=== PATIENT | male | born 1955 | race Caucasian/White ===

== ENCOUNTER → 2018-09-07 | Outpatient (CLI) | payer OTHER, MEDICARE ==
--- NOTE | 2018-09-07 08:28 | MR ---
EXAMINATION TYPE: MR shoulder RT wo con DATE OF EXAM: 09/07/2018 COMPARISON: None HISTORY: Rotator cuff tear, right shoulder, pain, numbness, loss of motion TECHNIQUE: Multiplanar, multisequence imaging of the right shoulder is performed without contrast. FINDINGS: Rotator Cuff: There is increased signal associated with the rotator cuff tendon, at the anterior aspe ct focal fluid signal is present suggestive of at least a partial tear and possibly a partial full-th ickness tear with associated tendinosis. Posterior aspect of the rotator cuff also is attenuated near the insertion. Acromioclavicular Joint: Hypertrophic change of the acromioclavicular joint causes some mass effect o n the musculotendinous junction of supraspinatus. Small distal acromial spur is suggested. Glenohumeral Joint: Intact Labrum: Labrum shows some increased signal within its substance which may be due to some degenerative changes, degenerative tear especially at the anterior aspect Biceps Tendon: Normal position, there is some fluid signal along the long head of biceps tendon Bone marrow signal: Pseudocysts are present within the humeral head. Other: Fluid signal present in the subacromial subdeltoid bursa IMPRESSION: Tendinosis and partial tear of the rotator cuff as described. Correlate for impingement.
== END | disposition home or self-care (01) ==
LOC: RADMRIMAIN 06:45
PROVIDERS: ATTEND Internal Medicine Rheumatology
DX: M75.101 Unspecified rotator cuff tear or rupture of right shoulder, not specified as traumatic (principal)

== ENCOUNTER → 2019-06-13 | Day surgery (SDC) | payer OTHER, MEDICARE ==
[2019-06-08 12:40] VITALS: BMI 29.9
--- NOTE | 2019-06-12 15:40 | HP ---
HISTORY AND PHYSICAL REASON FOR ADMISSION: Surgery is scheduled for 06/13/2019 HISTORY OF PRESENT ILLNESS: Juan Ruano is a 63-year-old patient seen with progressive right shoulder pain. We discussed options. He elected to proceed with arthroscopy. Consent was obtained. PAST MEDICAL HISTORY: Hypertension. PAST SURGICAL HISTORY: Knee arthroscopy, shoulder arthroscopy. MEDICATIONS: Bystolic, cyclobenzaprine, gabapentin, Prilosec. ALLERGIES: None. SOCIAL HISTORY: He denies current tobacco use. PHYSICAL EVALUATION: Examination of the right shoulder: Flexion is 120, abduction 70, external rotation 20 with pain and weakness. Tenderness along the anterior lateral acromion, rotator cuff insertion site. Impingement sign is positive at 70 degrees. Drop-arm sign is positive. Distal neurovascular exam is intact. RADIOGRAPHS: Of his right shoulder revealed a type 2 anterior acromion, evidence for acromioclavicular joint osteoarthritis. Right shoulder MRI revealed rotator cuff tear and impingement. IMPRESSION: 1. Right shoulder impingement, rotator cuff tear. 2. Right shoulder acromioclavicular osteoarthritis. 3. Hypertension. PLAN: Right shoulder arthroscopy with subacromial decompression, arthroscopic rotator cuff repair, Sumeet procedure and debridement. Surgery scheduled for 06/13/2019. MMODL / IJN: [id number] /
[~2019-06-13] MED LIST: DEXAMETHASONE SOD PHOSPHATE 10 MG/ML 1 ML VIAL IV ONE; GLYCOPYRROLATE 0.2 MG/ML 2 ML VIAL ONE; HYDROmorphone 0.5 MG/0.5 ML SYRINGE IVP PRN; LACTATED RINGERS 1,000 ML IV ONE; LACTATED RINGERS 1,000 ML IV SCH; LIDOCAINE 1% INJ 10MG/ML (20 ML MDV) ONE; MIDAZOLAM 2 MG/2 ML VIAL IV ONE; MIDAZOLAM 2 MG/2 ML VIAL IV PRN; MIDAZOLAM 2 MG/2 ML VIAL ONE; NEOSTIGMINE 1 MG/ML 10 ML VIAL ONE; ONDANSETRON 4 MG/2 ML VIAL IVP ONE; PHENYLEPHRINE-0.9% NACL SYG 1 MG/10 ML SYRINGE ONE; PROPOFOL 10 MG/ML 20 ML VIAL IV ONE; ROCURONIUM BROMIDE 10 MG/ML 10 ML VIAL IV ONE; ROPIVACAINE 0.2%-NS ON-Q PUMP 1,090 MG, EMPTY PAIN BALL 1 EACH MISCELLANE PRN; SCOPOLAMINE 1.5MG/72HR PATCH TRANSDERM ONE; fentaNYL (PF) 50 MCG/ML 2 ML AMP ONE
--- NOTE | 2019-06-13 15:00 | P.ANPRN ---
Procedure Note - Anesthesia - Nerve Block Performed Right Interscalene Infusion Time Out Performed: Yes Date of Procedure: 06/13/19 Procedure Start Time: 13:47 Procedure Stop Time: 14:10 Location of Patient: PreOp Indication: Acute Post-Operative Pain, Requested by Surgeon Sedation Type: Sedate with meaningful contact maintained Preparation: Sterile Prep, Sterile Dressing Position: Sitting Catheter: Indwelling Needle Types: Incentivyzey Needle Gauge: 18 Ultrasound used to visualize needle placement: Yes Ultrasound used to observe medication spread: Yes Injectate: 0.5% Ropivacaine (see comment for volume) (20 ml) Blood Aspirated: No Pain Paresthesia on Injection Noted: No Resistance on Injection: Normal Image Stored and Saved: Yes Events: Uneventful and Well Tolerated
--- NOTE | 2019-06-13 16:36 | P.OP ---
Date of Procedure: 06/13/19 Preoperative Diagnosis: Right shoulder impingement Postoperative Diagnosis: 1. Right shoulder rotator cuff tear 2. Right shoulder impingement 3. Right shoulder acromioclavicular joint osteoarthritis 4. Right shoulder partial long head biceps tendon Procedure(s) Performed: 1. Right shoulder arthroscopic rotator cuff repair 2. Right shoulder arthroscopic subacromial decompression 3. Right shoulder arthroscopic Sumeet procedure 4. Right shoulder arthroscopic biceps tenotomy Implants: 1Arthrex 4.75 swivel lock anchor Anesthesia: GETA, regional (Interscalene block) Surgeon: Jona Llanos Manager Body #1: Julien Anderson Estimated Blood Loss (ml): 8 Pathology: none sent Condition: stable Disposition: PACU Indications for Procedure: 63-year-old patient seen with progressive right shoulder pain. After treatment options to proceed with arthroscopy. Operative Findings: See description of procedure Description of Procedure: Patient underwent an interscalene block/catheter by department of anesthesia for postoperative pain management. The patient was then taken to the operative suite. The patient underwent a general anesthetic by the [facility] of [facility]. The patient was placed into a lateral position and secured. There was appropriate padding of the bony prominence. Right shoulder was then prepped and draped in normal sterile orthopedic fashion. We placed the extremity in 10 pounds of longitudinal traction. A posterior incision was now made for a posterior working portal site. The trocar and cannula were inserted into the glenohumeral joint. Arthroscopy was initiated. Spinal needle was now inserted anteriorly, to ascertain the anterior working portal site. An incision was now made in that area, a trocar was inserted followed by a probe. There was some hyperemia and partial tearing long head biceps tendon. There was some mild fraying of the superior labrum. There were grade 1 chondromalacia changes of glenohumeral joint. The remainder labrum was stable. I performed an arthroscopic biceps tenotomy. I debrided the superficial labral tear. I again probed the residual labrum was stable. I now removed instruments from g lenohumeral joint. Utilizing the posterior working portal site, the trocar and cannula were inserted into the subacromial space. Arthroscopy initiated. I made an incision 2 fingerbreadths lateral to the acromion. I introduced my trocar followed by my ArthroCare ablator. I now began ablating thick subacromial bursal tissue, which exposed the undersurface of the anterior acromion. There was diminished subacromial space. There was a very prominent anterior acromion. A motorized bur was introduced and a subacromial decompression was performed. I also excised some osteophytes off the inferior aspect of the distal clavicle. The AC joint was visualized and noted to be fairly arthritic. The motorized bur was introduced in the anterior portal site and a Sumeet procedure was performed without difficulty, decompressing the AC joint nicely. I turned my attention to the rotator cuff. There was a 1.5 cm rotator cuff tear along the posterior aspect of the disc space. There was an intrasubstance component to this. I debrided the margins gained down to stable tendon tissue. I abraded the footprint with a motorized bur. I did a [id number] repair of the intrasubstance tear with 2 simple interrupted sutures with the assistance of [place] BLISS. I now with assistance of [place] BLISS passed 2 everted mattress sutures through good bites of rotator cuff tendon. I now punched hole in the area of the footprint for insertion of an anchor. We now passed all 4 limbs of suture through an Arthrex 4.75 swivel lock anchor. I now introduced the eyelet of the anchor into the pre-punch hole. I held the eyelet in position while [place] BLISS tension the sutures and then deployed the anchor. There was good fixation of the anchor. We had good compression of the tendon along the entire footprint. Residual suture limbs were clipped. I injected 1 mL Renyte intra-articular. Instruments now removed from the portal sites. All portal sites were approximated with nylon suture. Sterile dressings were applied followed by a shoulder sling. Julien BLISS assisted in this complex case. The patient was awakened, transferred to a bed, and taken to recovery in stable condition.
[2019-06-13 16:47] VITALS: TEMP 97.7
[2019-06-13 18:34] VITALS: RESP 20
[2019-06-13 20:23] VITALS: BP 132/74; PULSE 78
== END | disposition home or self-care (01) ==
LOC: OR 12:34
PROVIDERS: ATTEND Orthopaedic Surgery
DX: M75.101 Unspecified rotator cuff tear or rupture of right shoulder, not specified as traumatic (principal); M19.011 Primary osteoarthritis, right shoulder; M75.41 Impingement syndrome of right shoulder; S46.111A Strain of muscle, fascia and tendon of long head of biceps, right arm, initial encounter; M94.211 Chondromalacia, right shoulder; I10 Essential (primary) hypertension; M06.9 Rheumatoid arthritis, unspecified; K21.9 Gastro-esophageal reflux disease without esophagitis; Z98.890 Other specified postprocedural states; Z79.899 Other long term (current) drug therapy; Z79.82 Long term (current) use of aspirin; X58.XXXA Exposure to other specified factors, initial encounter
CPT/HCPCS: 29827; 29826; 29824; 64416; 76942; C1713; Q4212; J2250; J1100; J2710; J0690; J2405; J2001; J3010; J2370; J2704; J2795; 64415

== ENCOUNTER 2022-03-07 21:12 | Observation (INO) | payer MEDICARE, OTHER ==
[2022-03-07 23:35] LABS: Basophils % (A) 0 %; Eosinophils # (A) 0.1 k/uL (0-0.7); Eosinophils % (A) 1 %; HCT 45.1 % (39.0-53.0); HGB 15.3 gm/dL (13.0-17.5); Lymphocytes % (A) 20 %; MCH 32.7 pg (25.0-35.0); MCHC 33.8 g/dL (31.0-37.0); MCV 96.6 fL (80.0-100.0); Mean Platelet Volume 8.1; Monocytes # (A) 0.9 k/uL (0-1.0); Monocytes % (A) 9 %; Neutrophils # (A) 6.5 k/uL (1.3-7.7); Neutrophils % (A) 66 %; Platelet Count 281 k/uL (150-450); RBC 4.67 m/uL (4.30-5.90); WBC 9.8 k/uL (3.8-10.6)
[2022-03-07 23:48] LABS: Potassium 4.5 mmol/L (3.5-5.1)
[2022-03-07] MEDS ORDERED: LABETALOL 5 MG/ML VIAL MDV IVP STA (23:50)
[2022-03-07] MEDS ORDERED: SODIUM CHLORIDE 0.9% 500 ML 500 ML IV STA (23:51)
--- NOTE | 2022-03-07 23:57 | ED ---
General Adult HPI - General Chief complaint: Recheck/Abnormal Lab/Rx Stated complaint: poss heartattack Time Seen by Provider: 03/07/22 23:45 Source: patient, family, RN notes reviewed, old records reviewed Mode of arrival: wheelchair Limitations: no limitations - History of Present Illness Initial comments: This is a well-appearing 66-year-old male patient that that presents with elevated blood pressure and complaints of frontal headache since yesterday with on /off dizziness. Denies chest pain or difficulty in breathing. States he does have a history of hypertension. Location: head (frontal) Severity scale (1-10): 4 Quality: aching Consistency: intermittent Associated Symptoms: other (dizziness on off) Treatments Prior to Arrival: none - Related Data Home Medications Medication Instructions Recorded Confirmed Aspirin 81 mg PO DAILY 06/08/19 06/08/19 Cyclobenzaprine [Flexeril] 10 mg PO HS 06/08/19 06/13/19 Folic Acid 1 mg PO DAILY 06/08/19 06/13/19 Gabapentin [Neurontin] 600 mg PO BID 06/08/19 06/13/19 Nebivolol HCl [Bystolic] 10 mg PO DAILY 06/08/19 06/13/19 Omeprazole [PriLOSEC] 20 mg PO AC-BRKFST 06/08/19 06/13/19 amLODIPine [Norvasc] 5 mg PO DAILY 06/08/19 06/13/19 inFLIXimab [Remicade] 0 mg IVPB Q45D 06/08/19 06/08/19 Previous Rx's Medication Instructions Recorded HYDROcodone/APAP 7.5-325MG [[place] 1 each PO Q6HR PRN #28 tab 06/13/19 7.5] Allergies Allergy/AdvReac Type Severity Reaction Status Date / Time No Known Allergies Allergy Verified 03/07/22 21:15 Review of Systems ROS Statement: Those systems with pertinent positive or pertinent negative responses have been documented in the HPI. ROS Other: All systems not noted in ROS Statement are negative. Past Medical History Past Medical History: CVA/TIA, GERD/Reflux, Hearing Disorder / Deafness, Hypertension, Osteoarthritis (OA), Rheumatoid Arthritis (RA) Additional Past Medical History / Comment(s): RLS, neuropathy feet, TIA x3-last one 10 yrs. ago-no residual effects, recent vertigo History of Any Multi-Drug Resistant Organisms: None Reported Past Surgical History: Appendectomy, Joint Replacement, Orthopedic Surgery Additional Past Surgical History / Comment(s): ji hips replaced, multiple ji. arthroscopies knees, right shoulder arthroscopy Past Anesthesia/Blood Transfusion Reactions: No Reported Reaction Past Psychological History: No Psychological Hx Reported Smoking Status: Never smoker Past Alcohol Use History: None Reported Past Drug Use History: Marijuana - Past Family History Mother Family Medical History: No Reported History General Exam Limitations: no limitations General appearance: alert, in no apparent distress Head exam: Present: atraumatic Eye exam: Absent: scleral icterus, conjunctival injection ENT exam: Present: mucous membranes moist Neck exam: Absent: tenderness, meningismus Respiratory exam: Present: normal lung sounds bilaterally. Absent: respiratory distress, wheezes, rales, rhonchi, stridor, chest wall tenderness, accessory muscle use Cardiovascular Exam: Present: irregular rhythm GI/Abdominal exam: Present: soft Extremities exam: Present: normal capillary refill. Absent: pedal edema Back exam: Absent: tenderness Neurological exam: Present: alert, oriented X3 Psychiatric exam: Present: normal affect, normal mood Skin exam: Present: warm, dry, normal color. Absent: cyanosis, diaphoretic, petechiae, pallor Course Vital Signs 03/07/22 03/07/22 03/08/22 21:13 23:30 00:57 Temperature 98.1 F Pulse Rate 85 72 98 Respiratory 18 18 18 Rate Blood Pressure 233/121 182/127 166/110 O2 Sat by Pulse 100 98 98 Oximetry 03/08/22 03/08/22 03/08/22 01:16 02:49 03:17 Temperature Pulse Rate 98 107 H 108 H Respiratory 18 18 18 Rate Blood Pressure 166/106 170/113 144/105 O2 Sat by Pulse 97 98 97 Oximetry EKG Findings - EKG Comments: EKG Findings:: no previous history of atrial flutter or atrial fibrillation - Dysrhythmias: Supraventricular dysrhythmia: atrial flutter (ventricular rate 91, QRS .89, qtc .397; normal axis) Medical Decision Making - Medical Decision Making Patient presents with elevated blood pressure and frontal headache with occasional dizziness since yesterday. Denies any chest pain or difficulty in breathing. On examination patient was found to have an irregular rhythm with a rate of 118. EKG shows atrial flutter. Patient does not have a history of atrial fibrillation/atrial flutter. He does not take any blood thinners. Blood pressure upon arrival was 233/121. Patient was given a dose of labetalol and Lopressor, blood pressure came down to 144/105. Troponin is negative and creatinine is within normal limits. Urinalysis clear. Patient states he underwent a stress test one year ago with Dr. Caceres Case discussed with Dr. Finch and patient was placed on heparin, admitted with hypertensive urgency and new onset atrial flutter. Consult to cardiology. Patient and family agreeable to admission. - Lab Data Result diagrams: 03/07/22 23:28 03/07/22 23:28 Lab Results 03/07/22 03/07/22 03/08/22 Range/Units 23:28 23:28 00:45 WBC 9.8 (3.8-10.6) k/uL RBC 4.67 (4.30-5.90) m/uL Hgb 15.3 (13.0-17.5) gm/dL Hct 45.1 (39.0-53.0) % MCV 96.6 (80.0-100.0) fL MCH 32.7 (25.0-35.0) pg MCHC 33.8 (31.0-37.0) g/dL RDW 13.0 (11.5-15.5) % Plt Count 281 (150-450) k/uL MPV 8.1 Neutrophils % 66 % Lymphocytes % 20 % Monocytes % 9 % Eosinophils % 1 % Basophils % 0 % Neutrophils # 6.5 (1.3-7.7) k/uL Lymphocytes # 2.0 (1.0-4.8) k/uL Monocytes # 0.9 (0-1.0) k/uL Eosinophils # 0.1 (0-0.7) k/uL Basophils # 0.0 (0-0.2) k/uL PT 10.9 (9.0-12.0) sec INR 1.0 (<1.2) APTT 25.7 (22.0-30.0) sec Sodium 139 (137-145) mmol/L Potassium 4.5 (3.5-5.1) mmol/L Chloride 105 (98-107) mmol/L Carbon Dioxide 24 (22-30) mmol/L Anion Gap 10 mmol/L BUN 23 H (9-20) mg/dL Creatinine 1.01 (0.66-1.25) mg/dL Est GFR (CKD-EPI)AfAm 89 (>60 ml/min/1.73 sqM) Est GFR (CKD-EPI)NonAf 77 (>60 ml/min/1.73 sqM) Glucose 119 H (74-99) mg/dL Calcium 9.0 (8.4-10.2) mg/dL Magnesium (1.6-2.3) mg/dL Troponin I (0.000-0.034) ng/mL 03/08/22 03/08/22 Range/Units 00:45 00:45 WBC (3.8-10.6) k/uL RBC (4.30-5.90) m/uL Hgb (13.0-17.5) gm/dL Hct (39.0-53.0) % MCV (80.0-100.0) fL MCH (25.0-35.0) pg MCHC (31.0-37.0) g/dL RDW (11.5-15.5) % Plt Count (150-450) k/uL MPV Neutrophils % % Lymphocytes % % Monocytes % % Eosinophils % % Basophils % % Neutrophils # (1.3-7.7) k/uL Lymphocytes # (1.0-4.8) k/uL Monocytes # (0-1.0) k/uL Eosinophils # (0-0.7) k/uL Basophils # (0-0.2) k/uL PT (9.0-12.0) sec INR (<1.2) APTT (22.0-30.0) sec Sodium (137-145) mmol/L Potassium (3.5-5.1) mmol/L Chloride (98-107) mmol/L Carbon Dioxide (22-30) mmol/L Anion Gap mmol/L BUN (9-20) mg/dL Creatinine (0.66-1.25) mg/dL Est GFR (CKD-EPI)AfAm (>60 ml/min/1.73 sqM) Est GFR (CKD-EPI)NonAf (>60 ml/min/1.73 sqM) Glucose (74-99) mg/dL Calcium (8.4-10.2) mg/dL Magnesium 2.2 (1.6-2.3) mg/dL Troponin I <0.012 (0.000-0.034) ng/mL Disposition Clinical Impression: Hypertensive urgency, New onset atrial flutter Disposition: ADMITTED IP TO THIS HOSP Referrals: Carmine King DO [Primary Care Provider] - 1-2 days Decision Date: 03/08/22 Decision Time: 01:50
--- NOTE | 2022-03-08 00:23 | XR ---
EXAMINATION TYPE: XR chest 2V DATE OF EXAM: 03/08/2022 COMPARISON: 05/16/2011 HISTORY: Chest pain TECHNIQUE: FINDINGS: Heart and mediastinum are normal. Lungs are clear. Diaphragm is normal. Bony thorax is inta ct. IMPRESSION: Normal chest. No change.
[2022-03-08 01:19] LABS: Partial Thromboplastin Time 25.7 sec (22.0-30.0); Prothrombin Time 10.9 sec (9.0-12.0)
[2022-03-08] MEDS ORDERED: HEPARIN SODIUM 1,000 UN/ML (10ML VL) IV PRN (02:03)
[2022-03-08] MEDS ORDERED: HEPARIN SODIUM 1,000 UN/ML (10ML VL) IV ONE (02:03)
[2022-03-08] MEDS ORDERED: NALOXONE 0.4 MG/ML 1 ML VIAL IV PRN (02:22)
[2022-03-08] MEDS ORDERED: ACETAMINOPHEN TAB 325 MG TAB PO PRN (02:22)
[2022-03-08] MEDS: HEPARIN SOD,PORK IN 0.45% NACL 25,000 UNIT in 0.45% NACL 1 250ML.BAG IV SCH ×2 (02:43→20:14)
[2022-03-08] MEDS: METOPROLOL TARTRATE 5 MG/5 ML VIAL IVP SCH ×3 (04:23→06:31)
[2022-03-08 04:30] LABS: Appearance,Urine Clear (Clear); Bilirubin,Urine Negative (Negative); Blood,Urine Negative (Negative); Color,Urine Light Yellow; Glucose,Urine (UA) Negative (Negative); Ketones,Urine Negative (Negative); Leukocyte Esterase,Urine Negative (Negative); Nitrite,Urine Negative (Negative); PH, Urine 6.5 (5.0-8.0); Protein,Urine Trace (Negative); Specific Gravity,Urine 1.014 (1.001-1.035); Urobilinogen,Urine <2.0 mg/dL (<2.0)
[2022-03-08] MEDS: PANTOPRAZOLE 40 MG TABLET PO SCH (08:32)
[2022-03-08] MEDS: NEBIVOLOL 5 MG TAB PO SCH ×2 (08:33→10:30)
[2022-03-08] MEDS: SODIUM CHLORIDE 0.9% 1,000 ML IV SCH (08:33)
[2022-03-08] MEDS ORDERED: amLODIPine 5 MG TAB PO SCH (09:00)
[2022-03-08] MEDS ORDERED: PANTOPRAZOLE 40 MG/10 ML VIAL IV SCH (09:00)
[2022-03-08] MEDS ORDERED: METOPROLOL TARTRATE 25 MG TAB PO SCH (09:00)
[2022-03-08] MEDS ORDERED: hydrALAZINE HCL 25 MG TAB PO PRN (10:19)
--- NOTE | 2022-03-08 10:21 | P.HPIM ---
History of Present Illness This is a pleasant 66 years old male with multiple medical problems as below Presents with headache and hypertension patient states he came to the hospital because he's been feeling weak and little dizzy. He checked his blood pressure yesterday and was elevated in the morning and in the afternoon so he decided to come to emergency room. He denies chest pain or dyspnea or coughing. No abdominal or urinary complaints. No fever. No headache or weakness or numbness He denies smoking or illicit drugs He drinks 6 beers a day and 2 shots of liquor every other day. Blood pressure on admission was 233/121. Currently blood pressure 166/124 patient is afebrile and heart rate is normal. Has unremarkable CBC, INR, BMP. Troponin is negative. Magnesium normal. Urinalysis is normal. EKG showing atrial flutter with a heart rate of 91 Chest x-ray: No acute process. Review of Systems Review of systems CONSTITUTIONAL: No fever, no malaise, no fatigue. HEENT: No recent visual problems or hearing problems. Denied any sore throat. CARDIOVASCULAR: No orthopnea, PND, no palpitations, no syncope. PULMONARY: No shortness of breath, no cough, no hemoptysis. GASTROINTESTINAL: No diarrhea, no nausea, no vomiting, no abdominal pain. Normoactive bowel sounds. NEUROLOGICAL: No headaches, no weakness, no numbness. HEMATOLOGICAL: Denies any bleeding or petechiae. GENITOURINARY: Denies any burning micturition, frequency, or urgency. MUSCULOSKELETAL/RHEUMATOLOGICAL: Denies any joint pain, swelling, or any muscle pain. ENDOCRINE: Denies any polyuria or polydipsia. Past Medical History Past Medical History: CVA/TIA, GERD/Reflux, Hearing Disorder / Deafness, Hypertension, Osteoarthritis (OA), Rheumatoid Arthritis (RA) Additional Past Medical History / Comment(s): RLS, neuropathy feet, TIA x3-last one 10 yrs. ago-no residual effects, recent vertigo History of Any Multi-Drug Resistant Organisms: None Reported Past Surgical History: Appendectomy, Joint Replacement, Orthopedic Surgery Additional Past Surgical History / Comment(s): ji hips replaced, multiple ji. arthroscopies knees, right shoulder arthroscopy Past Anesthesia/Blood Transfusion Reactions: No Reported Reaction Past Psychological History: No Psychological Hx Reported Smoking Status: Never smoker Past Alcohol Use History: None Reported Past Drug Use History: Marijuana - Past Family History Mother Family Medical History: No Reported History Medications and Allergies Home Medications Medication Instructions Recorded Confirmed Type Aspirin 81 mg PO DAILY 06/08/19 06/08/19 History Cyclobenzaprine [Flexeril] 10 mg PO HS 06/08/19 06/13/19 History Folic Acid 1 mg PO DAILY 06/08/19 06/13/19 History Gabapentin [Neurontin] 600 mg PO BID 06/08/19 06/13/19 History Nebivolol HCl [Bystolic] 10 mg PO DAILY 06/08/19 06/13/19 History Omeprazole [PriLOSEC] 20 mg PO AC-BRKFST 06/08/19 06/13/19 History amLODIPine [Norvasc] 5 mg PO DAILY 06/08/19 06/13/19 History inFLIXimab [Remicade] 0 mg IVPB Q45D 06/08/19 06/08/19 History HYDROcodone/APAP 7.5-325MG [[place] 1 each PO Q6HR PRN #28 tab 06/13/19 Rx 7.5] Allergies Allergy/AdvReac Type Severity Reaction Status Date / Time No Known Allergies Allergy Verified 03/07/22 21:15 Physical Exam Vitals: Vital Signs Temp Pulse Resp BP Pulse Ox 03/08/22 07:23 87 18 166/124 98 03/08/22 05:45 84 18 177/112 97 03/08/22 04:57 73 16 154/105 97 03/08/22 03:17 108 H 18 144/105 97 03/08/22 02:49 107 H 18 170/113 98 03/08/22 01:16 98 18 166/106 97 03/08/22 00:57 98 18 166/110 98 03/07/22 23:30 72 18 182/127 98 03/07/22 21:13 98.1 F 85 18 233/121 100 Intake and Output 03/07/22 03/08/22 03/08/22 22:59 06:59 14:59 Other: Weight 95.254 kg GENERAL: The patient is alert and oriented x3, not in any acute distress. Well developed, well nourished. HEENT: Pupils are round and equally reacting to light. EOMI. No scleral icterus. No conjunctival pallor. Normocephalic, atraumatic. No pharyngeal erythema. No thyromegaly. CARDIOVASCULAR: S1 and S2 present. No murmurs, rubs, or gallops. PULMONARY: Chest is clear to auscultation, no wheezing or crackles. ABDOMEN: Soft, nontender, nondistended, normoactive bowel sounds. No palpable organomegaly. MUSCULOSKELETAL: No joint swelling or deformity. EXTREMITIES: No cyanosis, clubbing, or pedal edema. NEUROLOGICAL: Gross neurological examination did not reveal any focal deficits. SKIN: No rashes. no petechiae. Results CBC & Chem 7: 03/07/22 23:28 03/07/22 23:28 Labs: Abnormal Lab Results - Last 24 Hours (Table) 03/07/22 03/08/22 Range/Units 23:28 04:20 BUN 23 H (9-20) mg/dL Glucose 119 H (74-99) mg/dL Urine Protein Trace H (Negative) Assessment and Plan Assessment: Hypertension with urgency, present on admission. Atrial fibrillation's with RVR Alcohol use disorder at risk of alcohol withdrawal Plan: This is a pleasant 66 years old male with A. fib and RVR and hypertension Continue with metoprolol Continue with anticoagulation Gentle hydration Cardiology consult Labs and medication were reviewed.. Continue same treatment. Continue with symptomatic treatment. Resume home medication. Monitor lytes and vitals. DVT and GI prophylaxis. Further recommendations as per clinical course of the patient DVT prophylaxis: heparin GI Prophylaxis: Pepcid Prognosis is guarded
[2022-03-08] MEDS ORDERED: amLODIPine 5 MG TAB PO STA (10:42)
[2022-03-08] MEDS ORDERED: LORazepam 2 MG/ML INJ IV PRN (10:59)
[2022-03-08] MEDS: lisinopriL 20 MG TAB PO SCH (11:18)
[2022-03-08] MEDS: THIAMINE 100 MG TAB PO SCH (11:19)
--- NOTE | 2022-03-08 12:21 | CA ---
Transthoracic Echo Report Name: Juan Ruano Age: 66 Gender: M : 1955 Exam Date: 03/08/2022 08:03 Exam Location: [facility] Ht (in): 62 Wt (lb): 210 Ordering Physician: Sreedhar Hobbs Attending/Referring Phys: Comic Book Writer Aline Agudelo, NOELLE Procedure CPT: Indications: new onset atrial flutter Cardiac Hx: Technical Quality: Contrast 1: Total Dose (mL): Contrast 2: Total Dose (mL): MEASUREMENTS (Male / Female) Normal Values 2D ECHO LV Diastolic Diameter PLAX 4.4 cm 4.2 - 5.9 / 3.9 - 5.3 cm LV Systolic Diameter PLAX 3.5 cm IVS Diastolic Thickness 1.3 cm 0.6 - 1.0 / 0.6 - 0.9 cm LVPW Diastolic Thickness 1.4 cm 0.6 - 1.0 / 0.6 - 0.9 cm LV Relative Wall Thickness 0.6 LA Systolic Diameter LX 3.7 cm 3.0 - 4.0 / 2.7 - 3.8 cm LA Volume 59.1 cm??? 18 - 58 / 22 - 52 cm??? M-MODE Aortic Root Diameter MM 3.2 cm LA Systolic Diameter MM 4.1 cm LA Ao Ratio MM 1.3 MV E Point Septal Separation 0.4 cm AV Cusp Separation MM 2.0 cm DOPPLER TR Peak Velocity 234.8 cm/s TR Peak Gradient 22.1 mmHg Right Ventricular Systolic Press 27.1 mmHg FINDINGS Left Ventricle Left ventricular ejection fraction is estimated at 50-55Mildly increased left ventricular wall thickness. %. Right Ventricle Normal right ventricular size and function. Right Atrium Normal right atrial size. Left Atrium Mildly increased left atrial volume. Mitral Valve Structurally normal mitral valve. Mild mitral regurgitation. Aortic Valve Trileaflet aortic valve. Tricuspid Valve Structurally normal tricuspid valve. Pulmonic Valve Structurally normal pulmonic valve. Pericardium Echo free space anterior to the right ventricle likely represents a fat pad. Aorta Normal size aortic root and proximal ascending aorta. CONCLUSIONS Normal LV systolic function Mild mitral regurgitation Previewed by: Dr. Papi Caceres MD (Electronically Signed) Final Date: 08 March 2022 12:20
--- NOTE | 2022-03-08 13:44 | P.CRDCN ---
History of Present Illness Consult date: 03/08/22 History of present illness: Patient has a known history of hypertension who initially presented to the ER with elevated blood pressure. Patient falls with Dr. Caceres in the office. We have in consultation to see the patient for new onset atrial flutter and hypertensive urgency. Patient's EKG showed atrial flutter with a controlled ventricle rate. He has no known history of A. fib or a flutter. When he initially presented to the ER his blood pressure was 233/121. He reports he checks his blood pressure at home and often it is systolically between 140-170. In this last week he has not been feeling well and his blood pressure has been increasingly elevated. He checked it yesterday and his blood pressure was 185/96 and he reported to the ER. He remains in atrial flutter with a controlled ventricle rate. Patient is currently on a heparin drip for anticoagulation. Will check coverage for Eliquis. Patient is on Lopressor and byistolic. Will discontinue byistolic. An increase Lopressor to 25 mg 3 times a day. Blood pressure remains uncontrolled. Start lisinopril 20 mg daily and increase amlodipine to 10 mg daily. Will obtain a 2-D echocardiogram Review of Systems REVIEW OF SYSTEMS At the time of my exam: CONSTITUTIONAL: Denies fever or chills. EYES: Negative for vision changes ENT: Negative for hearing loss CARDIOVASCULAR: Denies chest pain, shortness of breath, diaphoresis, orthopnea, PND or palpitations. VASCULAR: Denies edema RESPIRATORY: Denies cough. GASTROINTESTINAL: Denies abdominal pain, diarrhea, constipation, nausea or vomiting. MUSCULOSKELETAL: Denies myalgias. NEUROLOGIC: Denies numbness, tingling, headache or weakness. ENDOCRINE: Denies fatigue, weight change, polydipsia or polyurina. GENITOURINARY: Denies burning, hematuria or urgency with micturation. HEMATOLOGIC: Denies history of anemia or bleeding. DERMATOLOGY: Denies rash or skin sores PSYCH: Negative for depression or hallucinations. Past Medical History Past Medical History: CVA/TIA, GERD/Reflux, Hearing Disorder / Deafness, Hypertension, Osteoarthritis (OA), Rheumatoid Arthritis (RA) Additional Past Medical History / Comment(s): RLS, neuropathy feet, TIA x3-last one 10 yrs. ago-no residual effects, recent vertigo History of Any Multi-Drug Resistant Organisms: None Reported Past Surgical History: Appendectomy, Joint Replacement, Orthopedic Surgery Additional Past Surgical History / Comment(s): ji hips replaced, multiple ji. arthroscopies knees, right shoulder arthroscopy Past Anesthesia/Blood Transfusion Reactions: No Reported Reaction Past Psychological History: No Psychological Hx Reported Smoking Status: Never smoker Past Alcohol Use History: None Reported Past Drug Use History: Marijuana - Past Family History Mother Family Medical History: No Reported History Medications and Allergies Home Medications Medication Instructions Recorded Confirmed Type Nebivolol HCl [Bystolic] 10 mg PO DAILY 06/08/19 03/08/22 History Leflunomide [Arava] 20 mg PO DAILY 03/08/22 03/08/22 History Omeprazole [PriLOSEC] 40 mg PO DAILY 03/08/22 03/08/22 History amLODIPine BESYLATE/BENAZEPRIL 1 cap PO HS 03/08/22 03/08/22 History [amLODIPine BESYLATE/BENAZEPRIL 5-20 mg] Allergies Allergy/AdvReac Type Severity Reaction Status Date / Time No Known Allergies Allergy Verified 03/08/22 10:57 Physical Exam Vitals: Vital Signs Temp Pulse Resp BP Pulse Ox 03/08/22 12:07 133/103 03/08/22 11:14 76 18 171/126 97 03/08/22 10:34 81 18 184/114 98 03/08/22 08:35 82 18 155/103 98 03/08/22 07:23 87 18 166/124 98 03/08/22 05:45 84 18 177/112 97 03/08/22 04:57 73 16 154/105 97 03/08/22 03:17 108 H 18 144/105 97 03/08/22 02:49 107 H 18 170/113 98 03/08/22 01:16 98 18 166/106 97 03/08/22 00:57 98 18 166/110 98 03/07/22 23:30 72 18 182/127 98 03/07/22 21:13 98.1 F 85 18 233/121 100 Intake and Output 03/07/22 03/08/22 03/08/22 22:59 06:59 14:59 Other: Weight 95.254 kg PHYSICAL EXAMINATION VITAL SIGNS: Reviewed General: The patient is awake and alert, in no distress, and does not appear acutely ill. Skin: Skin is warm and dry and no rashes or lesions are noted. Eye: Pupils are equal, round and reactive to light, extra-ocular movements are intact; there is normal conjunctiva bilaterally. Ears, nose, mouth and throat: There are moist mucous membranes and no oral lesions. Neck: The neck is supple, there is no tenderness or JVD. Cardiovascular: There is irregular rate and rhythm. No murmur, rub or gallop is appreciated. Respiratory: Lungs are clear to auscultation, respirations are non-labored, breath sounds are equal. Gastrointestinal: Soft, non-distended, non-tender abdomen without masses or organomegaly noted. There is no rebound or guarding present. Bowel sounds are unremarkable. Back: There is no tenderness to palpation in the midline. There is no obvious deformity. Musculoskeletal: Normal ROM, no tenderness, There is no pedal edema. There is no calf tenderness or swelling. Extremities: Mild bilateral pitting edema Vascular: Femoral pulse is normal. Posterior tibial pulses are normal .Dorsalis pedis is palpable. Neurological: CN II-XII intact. There are no obvious motor or sensory deficits. Speech is normal. Psychiatric: Cooperative, appropriate mood & affect, normal judgment Results 03/07/22 23:28 03/07/22 23:28 Cardiac Enzymes 03/08/22 Range/Units 00:45 Troponin I <0.012 (0.000-0.034) ng/mL Coagulation 03/08/22 03/08/22 Range/Units 00:45 08:32 PT 10.9 (9.0-12.0) sec APTT 25.7 35.6 H (22.0-30.0) sec CBC 03/07/22 Range/Units 23:28 WBC 9.8 (3.8-10.6) k/uL RBC 4.67 (4.30-5.90) m/uL Hgb 15.3 (13.0-17.5) gm/dL Hct 45.1 (39.0-53.0) % Plt Count 281 (150-450) k/uL Comprehensive Metabolic Panel 03/07/22 Range/Units 23:28 Sodium 139 (137-145) mmol/L Potassium 4.5 (3.5-5.1) mmol/L Chloride 105 (98-107) mmol/L Carbon Dioxide 24 (22-30) mmol/L BUN 23 H (9-20) mg/dL Creatinine 1.01 (0.66-1.25) mg/dL Glucose 119 H (74-99) mg/dL Calcium 9.0 (8.4-10.2) mg/dL Current Medications Generic Name Dose Route Start Last Admin Trade Name Freq PRN Reason Stop Dose Admin Acetaminophen 650 mg 03/08/22 02:22 Acetaminophen Tab 325 Mg Tab PO Q6HR PRN Mild Pain or Fever > 100.5 Amlodipine Besylate 10 mg 03/09/22 09:00 Amlodipine 10 Mg Tab PO DAILY ARUN Famotidine 20 mg 03/08/22 21:00 Famotidine 20 Mg/2 Ml Vial IV Q12HR ARUN Heparin Sodium (Porcine) 0 unit 03/08/22 02:03 Heparin Sodium 1,000 Un/Ml (10ml Vl) IV PER PROTOCOL PRN Low PTT Protocol Hydralazine HCl 25 mg 03/08/22 10:19 Hydralazine Hcl 25 Mg Tab PO QID PRN Blood Pressure - High Heparin Sodium/Sodium Chloride 250 mls @ 10 mls/hr 03/08/22 02:15 03/08/22 02:43 25,000 unit/ Sodium Chloride IV 10.4982 units/kg/hr .Q24H ARUN 10 mls/hr Administration Protocol 10.4982 UNITS/KG/HR Sodium Chloride 1,000 mls @ 75 mls/hr 03/08/22 02:30 03/08/22 08:33 Saline 0.9% IV 75 mls/hr .[id number] ARUN Administration Lisinopril 20 mg 03/08/22 10:45 03/08/22 11:18 Lisinopril 20 Mg Tab PO 20 mg DAILY ARUN Administration Lorazepam 1 mg 03/08/22 10:59 Lorazepam 2 Mg/Ml Inj IV Q6HR PRN Anxiety Metoprolol Tartrate 2.5 mg 03/08/22 02:15 03/08/22 06:31 Metoprolol Tartrate 5 Mg/5 Ml Vial IVP 2.5 mg Q5M ARUN Administration Metoprolol Tartrate 25 mg 03/08/22 22:00 Metoprolol Tartrate 25 Mg Tab PO TID ARUN Naloxone HCl 0.2 mg 03/08/22 02:22 Naloxone 0.4 Mg/Ml 1 Ml Vial IV Q2M PRN Opioid Reversal Pantoprazole Sodium 40 mg 03/08/22 07:30 03/08/22 08:32 Pantoprazole 40 Mg Tablet PO 40 mg [id number] ARUN Administration Thiamine HCl 100 mg 03/08/22 11:00 03/08/22 11:19 Thiamine 100 Mg Tab PO Not Given DAILY ARUN Intake and Output 03/07/22 03/08/22 03/08/22 22:59 06:59 14:59 Other: Weight 95.254 kg 03/07/22 23:28 03/07/22 23:28 Assessment and Plan Assessment: New onset atrial flutter Hypertensive urgency Plan: Continue with heparin drip, check coverage for Eliquis Increase amlodipine to 10 mg daily Discontinue byistolic increase Lopressor to 25 mg 3 times a day Add lisinopril 20 mg daily Will obtain a 2-D echocardiogram Continue with telemetry monitoring Further recommendations based on clinical course The above impression and plan of care have been discussed and directed by the signing physician. Sandi Marrufo, nurse practitioner, acting as scribe for signing physician.
[2022-03-08] MEDS: FAMOTIDINE 20 MG/2 ML VIAL IV SCH (20:14)
[2022-03-08] MEDS: METOPROLOL TARTRATE 25 MG TAB PO SCH (20:14)
[2022-03-09 02:10] LABS: Basophils # (A) 0.1 k/uL (0-0.2); Basophils % (A) 1 %; Eosinophils # (A) 0.1 k/uL (0-0.7); Eosinophils % (A) 2 %; HCT 44.4 % (39.0-53.0); HGB 14.8 gm/dL (13.0-17.5); Lymphocytes # (A) 2.8 k/uL (1.0-4.8); Lymphocytes % (A) 35 %; MCH 32.6 pg (25.0-35.0); MCHC 33.3 g/dL (31.0-37.0); MCV 97.7 fL (80.0-100.0); Mean Platelet Volume 8.4; Monocytes # (A) 0.6 k/uL (0-1.0); Monocytes % (A) 7 %; Neutrophils # (A) 4.3 k/uL (1.3-7.7); Neutrophils % (A) 53 %; Platelet Count 224 k/uL (150-450); RBC 4.54 m/uL (4.30-5.90); RDW 13.4 % (11.5-15.5)
[2022-03-09 02:31] LABS: INR 1.1 (<1.2); Partial Thromboplastin Time 56.1 sec (22.0-30.0); Prothrombin Time 11.5 sec (9.0-12.0)
[2022-03-09] MEDS: SODIUM CHLORIDE 0.9% 1,000 ML IV SCH (05:47)
[2022-03-09] MEDS: PANTOPRAZOLE 40 MG TABLET PO SCH (06:34)
[2022-03-09] MEDS: METOPROLOL TARTRATE 25 MG TAB PO SCH ×3 (08:39→20:14)
[2022-03-09] MEDS: lisinopriL 20 MG TAB PO SCH (08:39)
[2022-03-09] MEDS: amLODIPine 10 MG TAB PO SCH (08:39)
[2022-03-09] MEDS: THIAMINE 100 MG TAB PO SCH (08:39)
[2022-03-09] MEDS: FAMOTIDINE 20 MG/2 ML VIAL IV SCH (08:39)
--- NOTE | 2022-03-09 13:57 | P.PN ---
Subjective Progress Note Date: 03/09/22 Patient seen today resting comfortably in bed he remains in atrial flutter with a controlled ventricular rate. He states he is doing well he denies palpitations, chest pain, shortness of breath. Patient had an echocardiogram which shows a normal LV function with mild mitral regurgitation. Blood pressure is elevated today will increase lisinopril to 40 mg daily. Will discontinue heparin drip and transitioned to oral Eliquis. Objective - Vital Signs Vital signs: Vital Signs Temp 98.0 F 03/09/22 12:00 Pulse 64 03/09/22 12:00 Resp 14 03/09/22 12:00 BP 171/96 03/09/22 12:00 Pulse Ox 99 03/09/22 12:00 FiO2 Intake & Output 03/08/22 03/09/22 03/09/22 18:59 06:59 18:59 Intake Total 560 861.980 9317 Balance 560 736.759 7065 Weight 95.254 kg Intake: Intake, IV Titration 80 261.001 96 Amount Heparin Sod,Pork in 0.45% 80 261.001 NaCl 25,000 unit In 0.45 % NaCl 1 250ml.bag @ 10. 4982 UNITS/KG/HR 10 mls/ hr IV .Q24H ARUN Rx#: [id number] Sodium Chloride 0.9% 1, 96 000 ml @ 75 mls/hr IV . [id number] ARUN Rx#:[id number] Oral 480 485 960 Other: Voiding Method Toilet Toilet # Voids 1 2 2 - Exam PHYSICAL EXAM: VITAL SIGNS: Reviewed. GENERAL: Well-developed in no acute distress. HEENT: Head is normocephalic. Pupils are equal, round. Sclerae anicteric. Mucous membranes of the mouth are moist. NECK: Supple. No JVD or thyromegaly RESPIRATORY: Respirations even and unlabored. Lungs diminished to auscultation bilaterally. CARDIO: irRegular rate and rhythm. S1 and S2 heard. No murmur or gallops. EXTREMITIES: Normal range of motion. No clubbing or cyanosis. Peripheral pulses intact. Negative for bilateral lower extremity edema NEURO: Orientated to person, time, mood is appropriate - Labs CBC & Chem 7: 03/09/22 01:55 03/07/22 23:28 Labs: Abnormal Lab Results - Last 24 Hours (Table) 03/08/22 03/09/22 Range/Units 18:43 01:55 APTT 32.5 H 56.1 H (22.0-30.0) sec Assessment and Plan Assessment: New onset atrial flutter with a controlled ventricular rate Hypertension Plan: Discontinue heparin drip and start Eliquis Increase lisinopril to 40 mg daily 2-D echocardiogram obtained and reviewed Continue with telemetry monitoring Further recommendations based on clinical course The above impression and plan of care have been discussed and directed by the signing physician. Sandi Marrufo, nurse practitioner, acting as scribe for signing physician.
[2022-03-09] MEDS ORDERED: LORazepam 1 MG/0.5 ML VIAL IV PRN (14:15)
[2022-03-09] MEDS: HEPARIN SOD,PORK IN 0.45% NACL 25,000 UNIT in 0.45% NACL 1 250ML.BAG IV SCH (15:21)
--- NOTE | 2022-03-09 16:50 | P.PN ---
Subjective This is a pleasant 66 years old male with multiple medical problems as below Presents with headache and hypertension patient states he came to the hospital because he's been feeling weak and little dizzy. He checked his blood pressure yesterday and was elevated in the morning and in the afternoon so he decided to come to emergency room. He denies chest pain or dyspnea or coughing. No abdominal or urinary complaints. No fever. No headache or weakness or numbness He denies smoking or illicit drugs He drinks 6 beers a day and 2 shots of liquor every other day. Blood pressure on admission was 233/121. Currently blood pressure 166/124 patie nt is afebrile and heart rate is normal. Has unremarkable CBC, INR, BMP. Troponin is negative. Magnesium normal. Urinalysis is normal. EKG showing atrial flutter with a heart rate of 91 Chest x-ray: No acute process. 03/09/2022 Patient with no chest pain or dyspnea, no more palpitation Heart rate is controlled, with metoprolol and Eliquis Lisinopril increased to 40 mg from tomorrow Objective - Vital Signs Vital signs: Vital Signs Temp 98.3 F 03/08/22 20:00 Pulse 74 03/09/22 04:00 Resp 16 03/09/22 04:00 BP 128/82 03/09/22 04:00 Pulse Ox 97 03/09/22 08:04 FiO2 Intake & Output 03/08/22 03/09/22 03/09/22 18:59 06:59 18:59 Intake Total 560 746.001 Balance 560 746.001 Weight 95.254 kg Intake: Intake, IV Titration 80 261.001 Amount Heparin Sod,Pork in 0.45% 80 261.001 NaCl 25,000 unit In 0.45 % NaCl 1 250ml.bag @ 10. 4982 UNITS/KG/HR 10 mls/ hr IV .Q24H ARUN Rx#: [id number] Oral 480 485 Other: Voiding Method Toilet # Voids 1 2 - Exam GENERAL: The patient is alert and oriented x3, not in any acute distress. Well developed, well nourished. HEENT: Pupils are round and equally reacting to light. EOMI. No scleral icterus. No conjunctival pallor. Normocephalic, atraumatic. No pharyngeal erythema. No thyromegaly. CARDIOVASCULAR: S1 and S2 present. No murmurs, rubs, or gallops. PULMONARY: Chest is clear to auscultation, no wheezing or crackles. ABDOMEN: Soft, nontender, nondistended, normoactive bowel sounds. No palpable organomegaly. MUSCULOSKELETAL: No joint swelling or deformity. EXTREMITIES: No cyanosis, clubbing, or pedal edema. NEUROLOGICAL: Gross neurological examination did not reveal any focal deficits. SKIN: No rashes. no petechiae. - Labs CBC & Chem 7: 03/09/22 01:55 03/07/22 23:28 Labs: Abnormal Lab Results - Last 24 Hours (Table) 03/08/22 03/09/22 Range/Units 18:43 01:55 APTT 32.5 H 56.1 H (22.0-30.0) sec Assessment and Plan Assessment: Hypertension with urgency, present on admission. Atrial fibrillation's with RVR Alcohol use disorder at risk of alcohol withdrawal Plan: This is a pleasant 66 years old male with A. fib and RVR and hypertension Continue with metoprolol Continue with anticoagulation Gentle hydration Cardiology consult Labs and medication were reviewed.. Continue same treatment. Continue with symptomatic treatment. Resume home medication. Monitor lytes and vitals. DVT and GI prophylaxis. Further recommendations as per clinical course of the patient DVT prophylaxis: ELIQUIS blood thinners GI Prophylaxis: Pepcid Prognosis is guarded
[2022-03-09] MEDS: APIXABAN 5 MG TAB PO SCH (17:38)
[2022-03-10] MEDS: PANTOPRAZOLE 40 MG TABLET PO SCH (06:34)
[2022-03-10] MEDS: amLODIPine 10 MG TAB PO SCH (08:33)
[2022-03-10] MEDS: APIXABAN 5 MG TAB PO SCH (08:33)
[2022-03-10] MEDS: METOPROLOL TARTRATE 25 MG TAB PO SCH ×2 (08:33→16:29)
[2022-03-10] MEDS: THIAMINE 100 MG TAB PO SCH (08:33)
[2022-03-10] MEDS ORDERED: lisinopriL 20 MG TAB PO SCH (09:00)
--- NOTE | 2022-03-10 13:37 | P.PN ---
Subjective This is a 66-year-old male past medical history of hypertension, TIA, rheumatoid arthritis, daily alcohol use. He follows in the office with Dr. Caceres. We have been asked to see in consultation for new onset atrial flutter. Patient presents emergency department with elevated BP and A flutter with RVR. Patient seen and examined at bedside, no acute distress. He continues to be in atrial flutter with better controlled rates 60s-low 100s. He is currently maintained on amlodipine 10 mg daily, Eliquis 5 mg twice a day, lisinopril 40 mg daily, metoprolol tartrate 25 mg 3 times a day. Echocardiogram revealed EF 50-55%. Blood pressure 155/87, heart rate 63, afebrile, oxygen saturations 98% on room air GENERAL: Well-appearing, well-nourished and in no acute distress. NECK: Supple without JVD or thyromegaly. LUNGS: Breath sounds clear to auscultation bilaterally. Respiration equal and unlabored. No wheezes, rales or rhonchi. HEART: Regular rate and rhythm without murmurs, rubs or gallops. S1 and S2 heard. EXTREMITIES: Normal range of motion, no edema. No clubbing or cyanosis. Peripheral pulses intact. ASSESSMENT New onset typical atrial flutter with RVR, rates improved Hypertensive urgency History of TIA Alcohol use, patient states he drinks 6 beers/day PLAN Continue current medical therapy with amlodipine, lopressor, lisinopril and anticoagulation with Eliquis From a cardiology perspective, patient is stable to be discharge home later today if heart rates remained controlled Follow up with Dr. Caceres in 1 week. Nurse Practitioner note has been reviewed, I agree with a documented findings and plan of care. Patient was seen and examined. Objective - Vital Signs Vital signs: Vital Signs Temp 98.8 F 03/10/22 12:17 Pulse 63 03/10/22 12:17 Resp 18 03/10/22 12:17 BP 155/87 03/10/22 12:17 Pulse Ox 98 03/10/22 12:17 FiO2 Intake & Output 03/09/22 03/10/22 03/10/22 18:59 06:59 18:59 Intake Total 1791.768 118 Balance 1791.768 118 Intake: Intake, IV Titration 351.768 Amount Heparin Sod,Pork in 0.45% 159.768 NaCl 25,000 unit In 0.45 % NaCl 1 250ml.bag @ 10. 4982 UNITS/KG/HR 10 mls/ hr IV .Q24H ARUN Rx#: [id number] Sodium Chloride 0.9% 1, 192 000 ml @ 75 mls/hr IV . [id number] ARUN Rx#:[id number] Oral 1440 118 Other: Voiding Method Toilet Toilet Toilet # Voids 2 1 - Labs CBC & Chem 7: 03/09/22 01:55 03/07/22 23:28
[2022-03-10 16:30] VITALS: BP 142/77; PULSE 70; RESP 17; TEMP 97.8
--- NOTE | 2022-03-12 17:33 | P.DS ---
Providers Date of admission: 03/08/22 04:33 Expected date of discharge: 03/10/22 Attending physician: Carmine King Consults: 03/08/22 02:22 Consult Physician Routine Consulting Provider: Ahmet Sarmiento Consult Reason/Comments: new onset atrial flutter; hypertensive urgency Do you want consulting provider notified?: Yes, Notify in am Primary care physician: Carmine King Hospital Course: Final Diagnosis: New onset typical atrial flutter with RVR, rates improved Hypertensive urgency History of TIA Alcohol use, patient states he drinks 6 beers/day , 2 shots every other day Hospital course: This a 66-year-old gentleman admitted with new onset atrial flutter with RVR, hypertensive urgency and multiple other medical issues. Evaluated by cardiology with medications further adjusted including anticoagulation with Eliquis. Echocardiogram reported EF 5055%. Denies chest pain, palpitations or shortness of breath. Denies lightheadedness, dizziness or focal deficits. Alcohol abstinence reinforced. Cleared by cardiology for discharge. Patient will be discharged home today in stable condition with guarded prognosis. The impression and plan of care has been dictated as directed. : I performed a history and examination of this patient, discussed the same with the dictator. I agree with the dictator's note ,documented as a scribe. Any additional findings or plans will be noted. Patient Condition at Discharge: Stable Plan - Discharge Summary Discharge Rx Participant: Yes New Discharge Prescriptions: New Apixaban [Eliquis] 5 mg PO BID #60 tab Metoprolol Tartrate [Lopressor] 25 mg PO TID #90 tab Thiamine [Vitamin B-1] 100 mg PO DAILY tab Continue Omeprazole [PriLOSEC] 40 mg PO DAILY Changed amLODIPine BESYLATE/BENAZEPRIL [amLODIPine BESYLATE/BENAZEPRIL 5-20 mg] 2 cap PO HS #60 cap Discontinued Nebivolol HCl [Bystolic] 10 mg PO DAILY No Action Leflunomide [Arava] 20 mg PO DAILY Discharge Medication List Leflunomide [Arava] 20 mg PO DAILY 03/08/22 [History] Omeprazole [PriLOSEC] 40 mg PO DAILY 03/08/22 [History] Apixaban [Eliquis] 5 mg PO BID #60 tab 03/09/22 [Rx] Metoprolol Tartrate [Lopressor] 25 mg PO TID #90 tab 03/10/22 [Rx] Thiamine [Vitamin B-1] 100 mg PO DAILY tab 03/10/22 [Rx] amLODIPine BESYLATE/BENAZEPRIL [amLODIPine BESYLATE/BENAZEPRIL 5-20 mg] 2 cap PO HS #60 cap 03/10/22 [Rx] Follow up Appointment(s)/Referral(s): Carmine King DO [Primary Care Provider] - 3 Days (Call Dr. Lou's office in the morning to schedule a follow-up appointment within 3 days.) Papi Caceres MD [STAFF PHYSICIAN] - 1 Week (Call Dr. Caceres's office in the morning to schedule a follow up with in the next week.) Patient Instructions/Handouts: Atrial Flutter (DC), Chronic Hypertension (DC) Discharge Disposition: HOME SELF-CARE
== END 2022-03-10 19:05 | disposition home or self-care (01) ==
LOC: EC 21:12 → 3SCARD 03-08 04:33
PROVIDERS: ADMIT Family Medicine; ATTEND Family Medicine
DX: I48.3 Typical atrial flutter (principal); I16.0 Hypertensive urgency; I10 Essential (primary) hypertension; K21.9 Gastro-esophageal reflux disease without esophagitis; M06.9 Rheumatoid arthritis, unspecified; G25.81 Restless legs syndrome; G62.9 Polyneuropathy, unspecified; F12.90 Cannabis use, unspecified, uncomplicated; H91.90 Unspecified hearing loss, unspecified ear; I48.91 Unspecified atrial fibrillation; I34.0 Nonrheumatic mitral (valve) insufficiency; F10.10 Alcohol abuse, uncomplicated; Z79.82 Long term (current) use of aspirin; Z79.899 Other long term (current) drug therapy; Z86.73 Personal history of transient ischemic attack (TIA), and cerebral infarction without residual deficits; Z96.643 Presence of artificial hip joint, bilateral
CPT/HCPCS: 96376 ×3; 96375 ×2; 96365; 96366 ×2; 96360; 96361; 99285; 36415; 94760; 93005; 93306; 80048; 83735; 84484; 85025 ×2; 85610 ×2; 85730 ×3; 81003; 71046; G0378 ×3; J1644 ×3

== ENCOUNTER → 2022-08-08 | Outpatient (CLI) | payer MEDICARE ==
[2022-08-08 18:48] LABS: HCT 41.6 % (39.6-50.0); HGB 13.2 g/dL (13.0-17.0); MCH 31.2 pg (27.0-32.0); MCHC 31.7 g/dL (32.0-37.0); MCV 98.3 fL (80.0-97.0); Mean Platelet Volume 10.4 fL (9.5-12.2); NRBC Per 100 WBC 0 /100 WBCS (0.0-0.0); Platelet Count 337 X 10*3/uL (140-440); RBC 4.23 X 10*6/uL (4.40-5.60); RDW 11.7 % (11.5-14.5); WBC 6.71 X 10*3/uL (4.50-10.00)
[2022-08-08 19:03] LABS: African American GFR (CKD) 89.4 (60.0-200.0); Anion Gap 10.4 mmol/L (10.00-18.00); BUN/Creat Ratio 12.08 Ratio (12.00-20.00); Blood Urea Nitrogen 12.2 mg/dL (9.0-27.0); Calcium 9.7 mg/dL (8.7-10.3); Carbon Dioxide 26.2 mmol/L (20.0-27.5); Non-African American GFR(CKD) 77.2 (60.0-200.0); Potassium 4.7 mmol/L (3.5-5.5)
== END | disposition home or self-care (01) ==
LOC: LABWHC1 10:19
PROVIDERS: ATTEND Internal Medicine Cardiovascular Disease
DX: I48.11 Longstanding persistent atrial fibrillation (principal)
CPT/HCPCS: 36415; 80048; 84443; 84450; 84460; 85027

== ENCOUNTER 2022-09-02 05:53 | Day surgery (SDC) | payer MEDICARE ==
[2022-09-02] MEDS ORDERED: LACTATED RINGERS 1,000 ML IV ONE (06:33)
[2022-09-02 06:34] VITALS: TEMP 97.8
[2022-09-02] MEDS ORDERED: LIDOCAINE 1% (10MG/ML) FOR IV START INTRADERMA ONE (06:34)
[2022-09-02] MEDS ORDERED: METOPROLOL TARTRATE 5 MG/5 ML VIAL IVP ONE (06:45)
[2022-09-02] MEDS ORDERED: LIDOCAINE 2% INJ 20 MG/ML (2 ML VIAL) ONE (07:25)
[2022-09-02] MEDS ORDERED: PROPOFOL 10 MG/ML 20 ML VIAL IV ONE (07:25)
[2022-09-02] MEDS ORDERED: BENZOCAINE SPRAY 1 CAN TOPICAL ONE (07:30)
[2022-09-02] MEDS ORDERED: lisinopriL 20 MG TAB PO STA (07:49)
[2022-09-02] MEDS ORDERED: NITROGLYCERIN OINT 1 INCH/GM PACKET TOPICAL STA (07:49)
[2022-09-02] MEDS ORDERED: amLODIPine 10 MG TAB PO STA (07:51)
[2022-09-02] MEDS ORDERED: ENALAPRILAT 1.25 MG/ML 1 ML VIAL IVP ONE (08:56)
[2022-09-02] MEDS ORDERED: cloNIDine HCL 0.1 MG TAB PO SCH (11:15)
[2022-09-02 11:39] VITALS: RESP 14
[2022-09-02 12:01] VITALS: BP 144/82; PULSE 84
--- NOTE | 2022-09-03 06:01 | ECHOT ---
TRANSESOPHAGEAL ECHOCARDIOGRAM PROCEDURES PERFORMED: Transesophageal echocardiogram and cardioversion. INDICATION: Atrial flutter with poorly controlled ventricular rate. PROCEDURE NOTE: After obtaining informed consent, transesophageal echocardiogram was performed in left lateral position using an Omniplane probe. Local and IV sedation were obtained by the roller helper. The patient had poorly controlled hypertension. He seemed somewhat anxious and concerned about the procedures. I am hoping that once we sedate him, his pressure would get better. FINDINGS: 1. There is no intracardiac thrombus within the left atrial appendage, left atrium, right atrium, right ventricle. 2. Left ventricle has normal size and systolic function. 3. Mitral valve is anatomically normal. There is moderate central mitral regurgitation noted. Tricuspid valve appears normal. There is mild tricuspid regurgitation noted. Aortic valve is a 3-leaflet valve. There is no evidence of aortic stenosis or regurgitation. 4. Aortic root measures within normal limits. Right atrium and right ventricle are within normal limits. Left atrium is mildly enlarged. There is no evidence of [id number] shunt by color-flow Doppler or [id number] shunt by agitated saline contrast study. CONCLUSIONS: No intracardiac thrombus. Normal LV systolic function. PLAN: We will proceed with cardioversion. CARDIOVERSION NOTE: INDICATION: Atrial flutter with poorly controlled ventricular rate. After making sure that the patient is adequately anticoagulated with Eliquis and ruling out an intracardiac thrombus with a transesophageal echo, the patient underwent electrical cardioversion with 150 joules of synchronized DC current. He converted to sinus rhythm following a single shock. The patient had poorly controlled blood pressures. His blood pressure was well controlled at his recent visit. I will watch him and see, once the anxiety of the procedure improves if he is going to feel better. If he does not, then I am going to add hydralazine to his current medical regimen and give him his morning doses. MMODL / IJN: [id number] /
== END 2022-09-02 12:04 | disposition home or self-care (01) ==
LOC: OR 05:53
PROVIDERS: ATTEND Internal Medicine Cardiovascular Disease
DX: I48.92 Unspecified atrial flutter (principal); I48.91 Unspecified atrial fibrillation; I10 Essential (primary) hypertension; Z86.73 Personal history of transient ischemic attack (TIA), and cerebral infarction without residual deficits; Z79.01 Long term (current) use of anticoagulants; Z79.899 Other long term (current) drug therapy
CPT/HCPCS: 93312; 93320; 93325; 92960; J2704; J2001

== ENCOUNTER 2022-09-29 09:17 | Observation (INO) | payer MEDICARE ==
[2022-09-29 09:34] LABS: Glucose,Whole Blood 135 mg/dL (70-110)
--- NOTE | 2022-09-29 09:43 | ED ---
General Adult HPI - General Chief complaint: Neuro Symptoms/Deficit Stated complaint: Stroke Time Seen by Provider: 09/29/22 09:18 Source: patient, family Mode of arrival: wheelchair Limitations: no limitations - History of Present Illness Initial comments: Dictation was produced using shopp dictation software. please excuse any grammatical, word or spelling errors. Chief Complaint: 66-year-old male presents to the emergency department for right hand numbness History of Present Illness: 66-year-old male presents emergency department for right hand numbness that just present illness obtained from career development coordinator, preop nurse, 18 nurse and at the bedside. Patient is a 66-year-old male with recently diagnosed dementia. Patient was in preop for scheduled cardioversion with Dr. Caceres. Patient had preprocedure labs performed showing elevated blood pressure. Preop nurse contacted cardiology and was instructed to give the patient blood pressure medications. After blood pressure medications were provided patient started complaining of right hand numbness. Code stroke was activated. Recommendation by data warehouse specialist. NIH performed by preop nurse team and 18 and career development coordinator suggest the patient had an NIH score of 2 for right hand numbness and confusion. at bedside states that patient's confusion has been more apparent recently. Code stroke was paged for preop patient was sent to ER CT scanner. Patient complains of right hand numbness. The ROS documented in this emergency department record has been reviewed and confirmed by me. Those systems with pertinent positive or negative responses h ave been documented in the HPI. All other systems are other negative and/or noncontributory. - Related Data Home Medications Medication Instructions Recorded Confirmed Leflunomide [Arava] 20 mg PO DAILY 03/08/22 09/29/22 Omeprazole [PriLOSEC] 40 mg PO DAILY 03/08/22 09/29/22 Amiodarone [Cordarone] 200 mg PO BID 08/29/22 09/29/22 Abatacept [Orencia] 750 mg IV Q28D 09/29/22 09/29/22 Metoprolol Succinate (ER) [Toprol 50 mg PO DAILY 09/29/22 09/29/22 Xl] amLODIPine BESYLATE/BENAZEPRIL 1 cap PO DAILY 09/29/22 09/29/22 [Lotrel 10-40 mg Capsule] cloNIDine HCL 0.2 mg PO BID 09/29/22 09/29/22 Previous Rx's Medication Instructions Recorded Apixaban [Eliquis] 5 mg PO BID #60 tab 03/09/22 Allergies Allergy/AdvReac Type Severity Reaction Status Date / Time No Known Allergies Allergy Verified 09/29/22 11:25 Review of Systems ROS Statement: Those systems with pertinent positive or pertinent negative responses have been documented in the HPI. ROS Other: All systems not noted in ROS Statement are negative. Past Medical History Past Medical History: Atrial Fibrillation, CVA/TIA, GERD/Reflux, Hearing Disorder / Deafness, Hypertension, Osteoarthritis (OA), Rheumatoid Arthritis (RA) Additional Past Medical History / Comment(s): RLS, neuropathy feet, TIA X3-last one 10 yrs ago-no residual effects, vertigo, deaf in left ear. History of Any Multi-Drug Resistant Organisms: None Reported Past Surgical History: Appendectomy, Joint Replacement, Orthopedic Surgery Additional Past Surgical History / Comment(s): Bilateral hip and knee replacements, multiple bilateral knee arthroscopies, right shoulder arthroscopy, DEYSI. Past Anesthesia/Blood Transfusion Reactions: No Reported Reaction Past Psychological History: No Psychological Hx Reported Smoking Status: Never smoker Past Alcohol Use History: Occasional Past Drug Use History: None Reported - Past Family History Mother Family Medical History: No Reported History General Exam - General Exam Comments Initial Comments: PHYSICAL EXAM: General Impression: Alert and oriented x3, not in acute distress, tremulous HEENT: Normocephalic atraumatic, extra-ocular movements intact, pupils equal and reactive to light bilaterally, mucous membranes moist. Cardiovascular: Heart regular rate and rhythm Chest: Able to complete full sentences, no retractions, no tachypnea Abdomen: abdomen soft, non-tender, non-distended, no organomegaly Musculoskeletal: Pulses present and equal in all extremities, no peripheral edema Motor: no focal deficits noted Neurological: CN II-XII grossly intact, no focal motor or sensory deficits noted, NIH of 1 for reported numbness to the right hand however with the patient. No bruit pressure to the fingertips he is able to sense pain Skin: Intact with no visualized rashes Psych: Normal affect and mood Limitations: no limitations Course Vital Signs 09/29/22 09/29/22 09/29/22 09:18 09:44 11:05 Pulse Rate 112 H 98 86 Respiratory 18 18 18 Rate Blood Pressure 141/100 128/92 103/62 O2 Sat by Pulse 98 97 97 Oximetry 09/29/22 09/29/22 11:32 11:33 Pulse Rate 68 83 Respiratory 20 16 Rate Blood Pressure 104/73 104/68 O2 Sat by Pulse 96 98 Oximetry - Reevaluation(s) Reevaluation #1: 09/29/22 09:40 Patient was seen and evaluated in room [address] Patient had code stroke activation. Patient a candidate for alteplase given that risk with the benefits for admission. He does have subjective numbness in his hand with no other the deficits noted. Residential Mortgage Underwriter, Lyssa who was there upon activation of culture being paged and spoke with the stroke interventional , Dr. Vora. According to Lyssa, patient not a candidate for tpa or thrombectomy. EKG Findings - EKG Comments: EKG Findings:: My EKG interpretation: Ventricular rate 107, A. fib, QRS 11, QTc 445. , no QTC prolongation, no ST or T-wave changes noted. EKG compared to 09/02/2022 showing no changes. Overall, this EKG is unremarkable Medical Decision Making - Medical Decision Making Was pt. sent in by a medical professional or institution (, PA, SCIENTIFIC SOFTWARE DEVELOPER, urgent care, hospital, or correction...) When possible be specific @ -Sent for preoperative department Did you speak to anyone other than the patient for history (EMS, parent, family, police, friend...)? What history was obtained from this source @ -Spoke with several individuals including preop nurse, a team nurse, career development coordinator. See below for further detail Did you review nursing and triage notes (agree or disagree)? Why? @ -I reviewed and agree with nursing and triage notes Were old charts reviewed (outside hosp., previous admission, EMS record, old EKG, old radiological studies, urgent care reports/EKG's, correction records)? Report findings @ -No old charts were reviewed Differential Diagnosis (chest pain, altered mental status, abdominal pain women, abdominal pain men, vaginal bleeding, musculoskeletal, weakness, fever, dyspnea, syncope, headache, dizziness, GI bleed, back pain, seizure, CVA, palpatations, mental health)? @ - Differential CVA: Ischemic stroke, hemorrhagic stroke, brain tumor, atypical migraine, Wernicke's encephalopathy, seizure, multiple sclerosis, meningitis, encephalitis, hypoglycemia, Guillain-Baez, electrolytes disturbance, myasthenia gravis.... This is not meant to be an all-inclusive list EKG interpreted by me (3pts min.). @ -My EKG interpretation: Ventricular rate 107, A. fib with RVR, QRS 11, QTc 445. no QTC prolongation, no ST or T-wave changes noted. Overall, this EKG is unremarkable X-rays interpreted by me (1pt min.). @ -Chest x-ray is nonacute CT interpreted by me (1pt min.). @ -Computed tomography scan of the brain and CT angiography ordered for preop is unremarkable. U/S interpreted by me (1pt. min.). @ -None done What testing was considered but not performed or refused? (CT, X-rays, U/S, labs)? Why? @ -None What meds were considered but not given or refused? Why? @ -None Did you discuss the management of the patient with other professionals (professionals i.e. , PA, SCIENTIFIC SOFTWARE DEVELOPER, lab, RT, psych nurse, social welfare administrator, specimen transporter, teacher, president and chief commercial officer, egg caser)? Give summary @ -See above. Case discussed with career development coordinator who spoke with stroke neurologist admitting the patient not a alteplase candidate Was smoking cessation discussed for >3mins.? @ -No Was critical care preformed (if so, how long)? @ -33 minutes Were there social determinants of health that impacted care today? How? (Homelessness, low income, unemployed, alcoholism, drug addiction, transportation, low edu. Level, literacy, decrease access to med. care, detention, rehab)? @ -No Was there de-escalation of care discussed even if they declined (Discuss DNR or withdrawal of care, Hospice)? DNR status @ -No What co-morbidities impacted this encounter? (DM, HTN, Smoking, COPD, CAD, Cancer, CVA, ARF, Chemo, Hep., AIDS, mental health diagnosis, sleep apnea, morbid obesity)? @ -None Was patient admitted / discharged? Hospital course, mention meds given and route, prescriptions, significant lab abnormalities, going to OR and other pertinent info. @ -66-year-old male presents to the emergency department as a code stroke activation from preoperative department. Patient scheduled to have cardioversion. He did have significant high blood pressure was given blood pressure medications. His blood pressure dropped very precipitously shortly after he also had some right hand numbness. Vital signs upon arrival are within acceptable limits. NIH score of 122. Patient had a candidate for alteplase due to risk outweighed the benefits. Imaging studies negative. Labs are unremarkable. Patient reevaluated bedside with complete resolution of his symptoms. He will however be admitted with consultation to neurology. Case discussed with Dr. King for admission. Undiagnosed new problem with uncertain prognosis? @ -No Drug Therapy requiring intensive monitoring for toxicity (Heparin, Nitro, Insulin, Cardizem)? @ -No Were any procedures done? @ -No Diagnosis/symptom? Acute, or Chronic, or Acute on Chronic? Uncomplicated (without systemic symptoms) or Complicated (systemic symptoms)? @ -1. Brief episode of Right hand numbness Side effects of treatment? @ -No Exacerbation, Progression, or Severe Exacerbation? @ -No Poses a threat to life or bodily function? How? (Chest pain, USA, ND, pneumonia, PE, COPD, DKA, ARF, appy, cholecystitis, CVA, Diverticulitis, Homicidal, Suicidal, threat to staff... and all critical care pts) @ -yes - Lab Data Result diagrams: 09/29/22 09:30 09/29/22 09:30 Lab Results 09/29/22 09/29/22 09/29/22 Range/Units 09:30 09:30 09:30 WBC 6.3 (3.8-10.6) k/uL RBC 5.08 (4.30-5.90) m/uL Hgb 15.7 (13.0-17.5) gm/dL Hct 47.1 (39.0-53.0) % MCV 92.7 (80.0-100.0) fL MCH 30.9 (25.0-35.0) pg MCHC 33.4 (31.0-37.0) g/dL RDW 14.1 (11.5-15.5) % Plt Count 282 (150-450) k/uL MPV 8.3 Neutrophils % 65 % Lymphocytes % 23 % Monocytes % 7 % Eosinophils % 1 % Basophils % 1 % Neutrophils # 4.1 (1.3-7.7) k/uL Lymphocytes # 1.4 (1.0-4.8) k/uL Monocytes # 0.4 (0-1.0) k/uL Eosinophils # 0.1 (0-0.7) k/uL Basophils # 0.0 (0-0.2) k/uL PT 11.9 (9.0-12.0) sec INR 1.2 H (<1.2) APTT 27.1 (22.0-30.0) sec Sodium 137 (137-145) mmol/L Potassium 3.3 L (3.5-5.1) mmol/L Chloride 105 (98-107) mmol/L Carbon Dioxide 17 L (22-30) mmol/L Anion Gap 15 mmol/L BUN 12 (9-20) mg/dL Creatinine 0.91 (0.66-1.25) mg/dL Est GFR (CKD-EPI)AfAm >90 (>60 ml/min/1.73 sqM) Est GFR (CKD-EPI)NonAf 88 (>60 ml/min/1.73 sqM) Glucose 116 H (74-99) mg/dL POC Glucose (mg/dL) (70-110) mg/dL POC Glu Kettle Room Helper ID Calcium 9.1 (8.4-10.2) mg/dL Total Bilirubin 1.0 (0.2-1.3) mg/dL AST 28 (17-59) U/L ALT 23 (4-49) U/L Alkaline Phosphatase 116 (38-126) U/L Creatine Kinase 58 (55-170) U/L Troponin I (0.000-0.034) ng/mL Total Protein 6.7 (6.3-8.2) g/dL Albumin 4.1 (3.5-5.0) g/dL Cortisol ug/dL 09/29/22 09/29/22 09/29/22 Range/Units 09:30 09:33 11:07 WBC (3.8-10.6) k/uL RBC (4.30-5.90) m/uL Hgb (13.0-17.5) gm/dL Hct (39.0-53.0) % MCV (80.0-100.0) fL MCH (25.0-35.0) pg MCHC (31.0-37.0) g/dL RDW (11.5-15.5) % Plt Count (150-450) k/uL MPV Neutrophils % % Lymphocytes % % Monocytes % % Eosinophils % % Basophils % % Neutrophils # (1.3-7.7) k/uL Lymphocytes # (1.0-4.8) k/uL Monocytes # (0-1.0) k/uL Eosinophils # (0-0.7) k/uL Basophils # (0-0.2) k/uL PT (9.0-12.0) sec INR (<1.2) APTT (22.0-30.0) sec Sodium (137-145) mmol/L Potassium (3.5-5.1) mmol/L Chloride (98-107) mmol/L Carbon Dioxide (22-30) mmol/L Anion Gap mmol/L BUN (9-20) mg/dL Creatinine (0.66-1.25) mg/dL Est GFR (CKD-EPI)AfAm (>60 ml/min/1.73 sqM) Est GFR (CKD-EPI)NonAf (>60 ml/min/1.73 sqM) Glucose (74-99) mg/dL POC Glucose (mg/dL) 135 H (70-110) mg/dL POC Glu Kettle Room Helper ID Cl Chavez Calcium (8.4-10.2) mg/dL Total Bilirubin (0.2-1.3) mg/dL AST (17-59) U/L ALT (4-49) U/L Alkaline Phosphatase (38-126) U/L Creatine Kinase (55-170) U/L Troponin I 0.013 (0.000-0.034) ng/mL Total Protein (6.3-8.2) g/dL Albumin (3.5-5.0) g/dL Cortisol 15 ug/dL Disposition Clinical Impression: Numbness of right hand Disposition[facility] Condition: Fair Referrals: Carmine King DO [Primary Care Provider] - 1-2 days Decision Time: 12:00
[2022-09-29 09:51] LABS: ALT 23 U/L (4-49); AST 28 U/L (17-59); African American GFR (CKD) >90 (>60 ml/min/1.73 sqM); Albumin 4.1 g/dL (3.5-5.0); Alkaline Phosphatase 116 U/L (38-126); Anion Gap 15 mmol/L; Blood Urea Nitrogen 12 mg/dL (9-20); Calcium 9.1 mg/dL (8.4-10.2); Carbon Dioxide 17 mmol/L (22-30); Chloride 105 mmol/L (98-107); Creatine Kinase 58 U/L (55-170); Glucose 116 mg/dL (74-99); Non-African American GFR(CKD) 88 (>60 ml/min/1.73 sqM); Potassium 3.3 mmol/L (3.5-5.1); Sodium 137 mmol/L (137-145); Total Protein 6.7 g/dL (6.3-8.2)
[2022-09-29 09:54] LABS: INR 1.2 (<1.2); Partial Thromboplastin Time 27.1 sec (22.0-30.0); Prothrombin Time 11.9 sec (9.0-12.0)
[2022-09-29 09:58] LABS: Basophils % (A) 1 %; Eosinophils # (A) 0.1 k/uL (0-0.7); Eosinophils % (A) 1 %; HCT 47.1 % (39.0-53.0); HGB 15.7 gm/dL (13.0-17.5); Lymphocytes # (A) 1.4 k/uL (1.0-4.8); Lymphocytes % (A) 23 %; MCH 30.9 pg (25.0-35.0); MCHC 33.4 g/dL (31.0-37.0); MCV 92.7 fL (80.0-100.0); Mean Platelet Volume 8.3; Monocytes # (A) 0.4 k/uL (0-1.0); Monocytes % (A) 7 %; Neutrophils # (A) 4.1 k/uL (1.3-7.7); Neutrophils % (A) 65 %; Platelet Count 282 k/uL (150-450); RBC 5.08 m/uL (4.30-5.90); RDW 14.1 % (11.5-15.5); WBC 6.3 k/uL (3.8-10.6)
--- NOTE | 2022-09-29 10:50 | XR ---
EXAMINATION TYPE: XR chest 2V DATE OF EXAM: 09/29/2022 COMPARISON: 03/08/2022 TECHNIQUE: PA and lateral views submitted. HISTORY: Shortness of breath FINDINGS: The lungs are clear and there is no pneumothorax, pleural effusion, or focal pneumonia. Heart size normal and no overt failure. Osseous structures demonstrate hypertrophic and degenerative changes of the spine. AC joint arthropathy. IMPRESSION: 1. No acute process.
[2022-09-29] MEDS ORDERED: ONDANSETRON 4 MG/2 ML VIAL IVP STA (12:13)
[2022-09-29] MEDS ORDERED: ASPIRIN 81 MG PO STA (12:46)
[2022-09-29] MEDS ORDERED: NALOXONE 0.4 MG/ML 1 ML VIAL IV PRN (12:46)
--- NOTE | 2022-09-29 14:03 | P.CNNES ---
History of Present Illness Consult date: 09/29/22 Requesting physician: Zohaib Whitaker Reason for Consult: Stroke History of Present Illness: Patient is a 66-year-old right-handed male with history of hypertension, atrial fibrillation, on Eliquis, came to the hospital for elective cardioversion. Patient was in the OR, when it around 8:30 AM before any procedure was done, he wanted to go potty. While he was there he started feeling dizzy, nauseous and his blood pressure went very high. He came back to the bed. He also noticed numbness of the right hand. Stroke code was activated. Patient was transferred to the ER. While in the ER, patient again wanted to go potty. While he was there, his blood pressure dropped. Patient's noticed that he was having trouble speaking, he could not smile on either side, and the numbness extended from right hand to the right forearm. Did not involve the facial region or the leg. Patient underwent CT head, which was normal. CTA of head and neck did not show any large vessel occlusion. Stroke code was activated. Patient was considered not a candidate for TPA or any intervention as his symptoms were improving, and also the patient was on Eliquis, and there was no large vessel occlusion. Overall the symptoms resolved in couple hours. At present he has no symptoms. He is back to baseline. Patient was diagnosed with atrial fibrillation in February 2022, when he felt very tired, his blood pressure was up and down. He was hospitalized for 3-4 days and was diagnosed with atrial fibrillation, started on Eliquis. Patient had undergone cardioversion about a month ago, which helped only for 2 days and after that he went back on atrial fibrillation. Patient has been very compliant on Eliquis, received the dose this morning. Patient has never smoked, drinks alcohol about 3 a day, but sometimes does not drink on certain days. Denies any use of marijuana. He has hypertension but no diabetes. Patient has history of bilateral knee replacement, the right side was 3 months ago. patient mentions that about few years ago he drove all the way to [place] 11 day. When he arrived to his family, he was sitting there having supper when he started vertigo, he stood up to get fresh air and the next thing he remembers is EMS was there. He passed out, lightheadedness seizure. He was taken to the hospital where he was hospitalized for 3 days. He was diagnosed with vertigo and released. Patient does have rheumatoid arthritis. Patient also has developed Parkinsonian type symptoms, with bradykinesia, slowing down with walking, with some stoop and shuffling and handwriting has become smaller than usual. He also has slight tremors. Review of Systems Constitutional: Denies chills, Denies fever Eyes: denies blurred vision, denies diplopia, denies pain Ears: deny: decreased hearing, ear discharge Ears, nose, mouth and throat: Denies headache, Denies sore throat Cardiovascular: Denies chest pain, Denies shortness of breath Respiratory: Denies cough, Denies excessive sputum Gastrointestinal: Reports nausea, Reports vomiting, Denies abdominal pain, Denies diarrhea, Denies hematochezia Musculoskeletal: Denies frequent falls, Denies muscle weakness, Denies myalgias Integumentary: Denies pruritus, Denies rash Neurological: Denies numbness, Denies weakness Psychiatric: Denies anxiety, Denies depression Endocrine: Denies fatigue, Denies polydipsia, Denies weight change Past Medical History Past Medical History: Atrial Fibrillation, CVA/TIA, GERD/Reflux, Hearing Disorder / Deafness, Hypertension, Osteoarthritis (OA), Rheumatoid Arthritis (RA) Additional Past Medical History / Comment(s): RLS, neuropathy feet, TIA X3-last one 10 yrs ago-no residual effects, vertigo, deaf in left ear. History of Any Multi-Drug Resistant Organisms: None Reported Past Surgical History: Appendectomy, Joint Replacement, Orthopedic Surgery Additional Past Surgical History / Comment(s): Bilateral hip and knee replacements, multiple bilateral knee arthroscopies, right shoulder arthroscopy, DEYSI. Past Anesthesia/Blood Transfusion Reactions: No Reported Reaction Past Psychological History: No Psychological Hx Reported Smoking Status: Never smoker Past Alcohol Use History: Occasional Past Drug Use History: None Reported - Past Family History Mother Family Medical History: No Reported History Medications and Allergies Home Medications Medication Instructions Recorded Confirmed Type Leflunomide [Arava] 20 mg PO DAILY 03/08/22 09/29/22 History Omeprazole [PriLOSEC] 40 mg PO DAILY 03/08/22 09/29/22 History Apixaban [Eliquis] 5 mg PO BID #60 tab 03/09/22 09/29/22 Rx Amiodarone [Cordarone] 200 mg PO BID 08/29/22 09/29/22 History Abatacept [Orencia] 750 mg IV Q28D 09/29/22 09/29/22 History Metoprolol Succinate (ER) [Toprol 50 mg PO DAILY 09/29/22 09/29/22 History Xl] amLODIPine BESYLATE/BENAZEPRIL 1 cap PO DAILY 09/29/22 09/29/22 History [Lotrel 10-40 mg Capsule] cloNIDine HCL 0.2 mg PO BID 09/29/22 09/29/22 History Allergies Allergy/AdvReac Type Severity Reaction Status Date / Time No Known Allergies Allergy Verified 09/29/22 11:25 Physical Examination - Vital Signs Vital Signs: Vital Signs Pulse Resp BP Pulse Ox 09/29/22 11:33 83 16 104/68 98 09/29/22 11:32 68 20 104/73 96 09/29/22 11:05 86 18 103/62 97 09/29/22 09:44 98 18 128/92 97 09/29/22 09:18 112 H 18 141/100 98 Intake and Output 09/28/22 09/29/22 09/29/22 22:59 06:59 14:59 Other: Weight 94.347 kg Patient is an elderly male, in no acute distress. Patient is alert awake oriented to time place and person. Patient knows it is September 2022 and that he is in [facility] in [place]. Speech and language functions are normal. Patient can name and repeat very well. No aphasia or dysarthria. Attention, concentration and fund of knowledge is adequate. On cranial nerve examination, pupils are equal, round and reacting to light, visual gonzalez are full on confrontation, with no neglect on double simultaneous stimulation. Extraocular muscles are intact with no nystagmus. Face is symmetric, tongue protrudes to the midline. Palatal elevation and sensation normal, hearing and shoulder shrug normal, facial sensation normal. On muscle strength testing, there is no pronator drift and the strength is normal in arms and legs distally and proximally. Deep tendon reflexes are symmetric biceps 2, brachioradialis 2, knees 0, ankles 1 and plantars downgoing bilaterally. Sensory to touch is equal with no neglect on double simultaneous stimulation. Cerebellar function showed no ataxia for [id number] testing. No dysdiadochokinesia. No ataxia for [id number] testing on either side. Tone and bulk of muscles normal. Gait deferred.. On general examination, there is no carotid bruit or murmur, S1-S2 audible. Chest is clear on consultation. Abdomen is soft nontender. No organomegaly, bowel sounds present. Peripheral pulses are present. No edema. Results - Laboratory Findings CBC and BMP: 09/29/22 09:30 09/29/22 09:30 Abnormal Lab Findings: Abnormal Labs 09/29/22 09/29/22 09/29/22 09:30 09:30 09:33 INR 1.2 H Potassium 3.3 L Carbon Dioxide 17 L Glucose 116 H POC Glucose (mg/dL) 135 H Assessment and Plan Assessment: * Probable TIA manifesting with transient nausea, vomiting, vertigo, right arm numbness and slurred speech. Symptoms resolved in 2 hours. At present patient has no symptoms and his NIH stroke scale is 0. * Hypertension * Atrial fibrillation, on Eliquis * Parkinsonian symptoms, rule out early onset Parkinson's disease * Mild alcohol consumption * Rheumatoid arthritis * History of bilateral knee and bilateral hip and right shoulder replacement. Plan: * Patient's symptoms have resolved. His NIH stroke scale is 0. * Continue Eliquis 5 mg twice a day. Agree with adding aspirin 81 mg daily. * 2-D echo rule out left atrial/left ventricular thrombus * CTA head and neck showed: Mild noncalcified stenosis at the origin of the left ICA within the neck. Mild arteriosclerotic calcification of the carotid siphons without significant stenosis. No significant stenosis, filling defect or segmental occlusion of the intracranial arterial circulation. * Fasting a.m. lipid panel * Hemoglobin A1c * Optimize control of blood pressure. * Close neuro checks as per protocol. * Continue Telemetry monitoring rule out any other arrhythmia. Patient does have A. fib. Cardiology on board. * DVT prophylaxis: Patient on Eliquis * Patient has mild parkinsonian symptoms. Suggest patient follow up with neurologist as an outpatient to rule out Parkinson's disease. We will hold off on any antiparkinsonian medication at this time. * Neurology will continue ot follow. Thank you for the consult. Time with Patient: Greater than 30
[2022-09-29] MEDS: cloNIDine HCL 0.2 MG TAB PO SCH (22:29)
[2022-09-29] MEDS: AMIODARONE 200 MG TAB PO SCH (22:29)
[2022-09-29] MEDS: PANTOPRAZOLE 40 MG TABLET PO SCH (22:29)
[2022-09-29] MEDS: APIXABAN 5 MG TAB PO SCH (22:29)
[2022-09-30] MEDS: PANTOPRAZOLE 40 MG TABLET PO SCH ×2 (06:36→16:40)
[2022-09-30] MEDS ORDERED: Potassium Replacement Protocol 1 EACH MISC MISCELLANE PRN (08:07)
[2022-09-30] MEDS ORDERED: Magnesium Replacement Protocol 1 EACH MISC MISCELLANE PRN (08:07)
[2022-09-30] MEDS: METOPROLOL SUCCINATE (ER) 50 MG TAB.ER.24H PO SCH (08:16)
[2022-09-30] MEDS: LEFLUNOMIDE 20 MG TAB PO SCH (08:16)
[2022-09-30] MEDS: AMIODARONE 200 MG TAB PO SCH ×2 (08:16→20:57)
[2022-09-30] MEDS: APIXABAN 5 MG TAB PO SCH ×2 (08:16→20:57)
[2022-09-30] MEDS: cloNIDine HCL 0.2 MG TAB PO SCH ×2 (08:16→20:57)
[2022-09-30 09:23] VITALS: BMI 29.0
[2022-09-30 10:29] LABS: African American GFR (CKD) >90 (>60 ml/min/1.73 sqM); Anion Gap 8 mmol/L; Blood Urea Nitrogen 13 mg/dL (9-20); Calcium 8.8 mg/dL (8.4-10.2); Carbon Dioxide 29 mmol/L (22-30); Chloride 103 mmol/L (98-107); Glucose 97 mg/dL (74-99); Non-African American GFR(CKD) 78 (>60 ml/min/1.73 sqM); Potassium 4.2 mmol/L (3.5-5.1); Sodium 140 mmol/L (137-145)
--- NOTE | 2022-09-30 10:46 | CA ---
Transthoracic Echo Report Name: Juan Ruano Age: 66 Gender: M : 1955 Exam Date: 09/29/2022 13:30 Exam Location: [facility] Ht (in): 71 Wt (lb): 208 Ordering Physician: Hoda Nicole Attending/Referring Phys: [id number], Corey Manager Multicultural Nai Harris RDCS Procedure CPT: Indications: LV function Cardiac Hx: Technical Quality: Fair Contrast 1: Total Dose (mL): Contrast 2: Total Dose (mL): MEASUREMENTS (Male / Female) Normal Values 2D ECHO LV Diastolic Diameter PLAX 3.6 cm 4.2 - 5.9 / 3.9 - 5.3 cm LV Systolic Diameter PLAX 2.6 cm IVS Diastolic Thickness 1.7 cm 0.6 - 1.0 / 0.6 - 0.9 cm LVPW Diastolic Thickness 1.7 cm 0.6 - 1.0 / 0.6 - 0.9 cm LV Relative Wall Thickness 0.9 RV Internal Dim ED PLAX 3.1 cm LA Volume 58.3 cm??? 18 - 58 / 22 - 52 cm??? M-MODE Aortic Root Diameter MM 2.6 cm LA Systolic Diameter MM 3.9 cm LA Ao Ratio MM 1.5 AV Cusp Separation MM 1.6 cm DOPPLER AV Peak Velocity 124.1 cm/s AV Peak Gradient 6.2 mmHg AV Mean Velocity 91.3 cm/s AV Mean Gradient 3.6 mmHg AV Velocity Time Integral 28.8 cm LVOT Peak Velocity 99.9 cm/s LVOT Peak Gradient 4.0 mmHg LVOT Velocity Time Integral 24.7 cm MV Area PHT 3.5 cm??? Mitral E Point Velocity 75.3 cm/s Mitral A Point Velocity 47.7 cm/s Mitral E to A Ratio 1.6 MV Deceleration Time 215.3 ms MV E' Velocity 6.5 cm/s Mitral E to MV E' Ratio 11.5 TR Peak Velocity 220.7 cm/s TR Peak Gradient 19.5 mmHg Right Ventricular Systolic Press 24.5 mmHg FINDINGS Left Ventricle Left ventricular cavity size normal. Moderately increased left ventricular wall thickness. Normal left ventricular systolic function with no obvious regional wall motion abnormalities. Left ventricular ejection fraction is estimated at 55-60 %. Right Ventricle Normal right ventricular size and function. Right ventricular systolic pressure within normal limits. Right Atrium Right atrium not well visualized. Left Atrium Normal left atrial size. Mitral Valve Structurally normal mitral valve. No mitral stenosis, regurgitation or prolapse. Aortic Valve Trileaflet aortic valve. No aortic valve stenosis or regurgitation. Tricuspid Valve Structurally normal tricuspid valve. Mild tricuspid regurgitation. Pulmonic Valve Trace pulmonic regurgitation. Pericardium No pericardial effusion. Aorta Normal size aortic root and proximal ascending aorta. CONCLUSIONS Normal LV size and systolic function. There is mild concentric LVH. No significant abnormality in the Doppler exam. No pericardial effusion Previewed by: Dr. Cruz Coates MD (Electronically Signed) Final Date: 30 Sep 2022 10:45
[2022-09-30] MEDS: amLODIPine 10 MG TAB PO SCH (11:08)
[2022-09-30] MEDS: lisinopriL 20 MG TAB PO SCH (11:08)
--- NOTE | 2022-09-30 11:15 | P.PN ---
Subjective HISTORY OF PRESENT ILLNESS: This is a 66-year-old male who is a patient of Dr. Schultz. Patient was scheduled for outpatient cardioversion yesterday when he was found to have uncontrolled blood pressure and was complaining of right-sided numbness. His cardioversion was canceled and the patient was admitted to the hospital for further evaluation. He has been evaluated by neurology. Patient states his symptoms have resolved today. His blood pressures this morning remain uncontrolled. Echocardiogram completed revealing ejection fraction 55-60%, mild concentric LVH, and mild tricuspid regurgitation. PHYSICAL EXAM: VITAL SIGNS: Reviewed. GENERAL: Well-developed in no acute distress. NECK: Supple. No JVD or thyromegaly LUNGS: Respirations even and unlabored. Lungs essentially clear to auscultation bilaterally. HEART: Irregular rate and rhythm. S1 and S2 heard. EXTREMITIES: Normal range of motion. No clubbing or cyanosis. Peripheral pulses intact. No lower extremity edema ASSESSMENT: Hypertensive urgency Possible TIA with right-sided numbness and slurred speech Persistent atrial fibrillation PLAN: Continue current cardiac medications Resume patient's home antihypertensive medications Continue to monitor blood pressure Obtain renal artery Doppler to rule out renal artery stenosis Labwork ordered yesterday for secondary hypertension Continue to monitor patient for an additional 24 hours Nurse practitioner note has been reviewed by physician. Signing provider agrees with the documented findings, assessment, and plan of care. Objective - Vital Signs Vital signs: Vital Signs Temp 97.5 F L 09/30/22 08:15 Pulse 68 09/30/22 08:15 Resp 14 09/30/22 08:15 BP 192/87 09/30/22 08:15 Pulse Ox 100 09/30/22 08:15 FiO2 Intake & Output 09/29/22 09/30/22 09/30/22 18:59 06:59 18:59 Intake Total 250 Balance 250 Weight 94.347 kg 94.347 kg Intake: Oral 250 Other: Voiding Method Toilet Toilet Urinal Urinal # Voids 1 - Labs CBC & Chem 7: 09/29/22 09:30 09/30/22 09:15
--- NOTE | 2022-09-30 15:29 | P.HPIM ---
History of Present Illness H&P Date: 09/30/22 Chief Complaint: Hypertension, numbing and tingling This is a 66-year-old gentleman with past medical history significant for atrial flutter, hypertension, alcohol use, TIA and multiple other medical issues, admitted initially yesterday for cardioversion. Developed hypertensive urgency with accompanying right arm numbness and tingling while in preop. Cardioversion canceled, transported to the ER, symptoms resolved and patient spontaneously converted to sinus rhythm. Echo completed reporting normal LV function, EF 55- 60%,. Hypertensive, systolic blood pressure this morning in the 180s. Chest x- ray reported no acute process .Neuro workup in progress. Review of Systems ROS Statement: Those systems with pertinent positive or pertinent negative responses have been documented in the HPI. ROS Other: All systems not noted in ROS Statement are negative. Past Medical History Past Medical History: Atrial Fibrillation, CVA/TIA, GERD/Reflux, Hearing Disorder / Deafness, Hypertension, Osteoarthritis (OA), Rheumatoid Arthritis (RA) Additional Past Medical History / Comment(s): RLS, neuropathy feet, TIA X3-last one 10 yrs ago-no residual effects, vertigo, deaf in left ear. History of Any Multi-Drug Resistant Organisms: None Reported Past Surgical History: Appendectomy, Joint Replacement, Orthopedic Surgery Additional Past Surgical History / Comment(s): Bilateral hip and knee replacements, multiple bilateral knee arthroscopies, right shoulder arthroscopy, DEYSI. Past Anesthesia/Blood Transfusion Reactions: No Reported Reaction Past Psychological History: No Psychological Hx Reported Smoking Status: Never smoker Past Alcohol Use History: Occasional Additional Past Alcohol Use History / Comment(s): "Doesn't really drink anymore. " Past Drug Use History: None Reported Additional Drug Use History / Comment(s): Occasionally in the past, "none for a while." - Past Family History Mother Family Medical History: No Reported History Medications and Allergies Home Medications Medication Instructions Recorded Confirmed Type Leflunomide [Arava] 20 mg PO DAILY 03/08/22 09/29/22 History Omeprazole [PriLOSEC] 40 mg PO DAILY 03/08/22 09/29/22 History Apixaban [Eliquis] 5 mg PO BID #60 tab 03/09/22 09/29/22 Rx Amiodarone [Cordarone] 200 mg PO BID 08/29/22 09/29/22 History Abatacept [Orencia] 750 mg IV Q28D 09/29/22 09/29/22 History Metoprolol Succinate (ER) [Toprol 50 mg PO DAILY 09/29/22 09/29/22 History XL] amLODIPine BESYLATE/BENAZEPRIL 1 cap PO DAILY 09/29/22 09/29/22 History [Lotrel 10-40 mg Capsule] cloNIDine HCL 0.2 mg PO BID 09/29/22 09/29/22 History Pantoprazole [Protonix] 40 mg PO AC-BID #60 tab 09/30/22 Rx Allergies Allergy/AdvReac Type Severity Reaction Status Date / Time No Known Allergies Allergy Verified 09/29/22 11:25 Physical Exam Vitals: Vital Signs Temp Pulse Pulse Resp BP BP Pulse Ox 09/30/22 11:05 97.9 F 69 16 151/77 98 09/30/22 08:15 97.5 F L 68 14 192/87 100 09/30/22 07:38 99 09/30/22 04:00 97.6 F 63 16 156/84 100 09/30/22 02:00 16 09/30/22 00:00 97 F L 59 L 14 127/75 98 09/29/22 20:00 97.4 F L 67 18 171/89 99 09/29/22 19:00 89 20 145/98 98 09/29/22 18:00 70 20 165/99 98 09/29/22 17:00 98 F 68 16 160/98 98 09/29/22 16:00 63 20 163/92 99 Intake and Output 09/30/22 09/30/22 09/30/22 06:59 14:59 22:59 Intake Total 250 Balance 250 Intake: Oral 250 Other: Voiding Method Toilet Toilet Urinal Urinal # Voids 1 Weight 94.347 kg - Exam GENERAL: Alert and oriented x3, no acute distress. Well developed, well nourished. HEENT: Pupils are round and equally reacting to light. EOMI. No scleral icterus. No conjunctival pallor. Normocephalic, atraumatic. No pharyngeal erythema. No thyromegaly. CARDIOVASCULAR: S1 and S2. Irregular, No murmurs, rubs, or gallops. PULMONARY: Unlabored ,Chest is clear to auscultation, no wheezing or crackles. ABDOMEN: Soft, nontender, nondistended, normoactive bowel sounds. No palpable organomegaly. MUSCULOSKELETAL: No joint swelling or deformity. EXTREMITIES: No cyanosis, clubbing, or pedal edema. NEUROLOGICAL: Gross neurological examination did not reveal any focal deficits. SKIN: No rashes. Warm and dry Results CBC & Chem 7: 09/29/22 09:30 09/30/22 09:15 Labs: Abnormal Lab Results - Last 24 Hours (Table) 09/30/22 Range/Units 09:15 Magnesium 2.4 H (1.6-2.3) mg/dL Thrombosis Risk Factor Assmnt - Choose All That Apply Each Factor Represents 1 point: Obesity (BMI >25) Each Risk Factor Represents 2 Points: Age 61-74 years Thrombosis Risk Factor Assessment Total Risk Factor Score: 3 Thrombosis Risk Factor Assessment Level: Moderate Risk Assessment and Plan Assessment: Hypertensive urgency Possible TIA, right arm numbness and tingling, symptoms resolved Persistent atrial fibrillation, on Eliquis Possibly Parkinson's disorder as per neurology History of CVA, TIA History of Alcohol use, currently decreased Rheumatoid arthritis Plan: Continue on current medication regime ,monitoring and symptomatic treatment. Electrolyte supplementation ordered. Anticoagulated on Eliquis. Norvasc and lisinopril added to antihypertensive regimen, close monitoring of blood pressure. Renal artery Doppler pending. Discharge planning in progress for tomorrow pending final DC recommendations and clearance per cardiology and neurology. The impression and plan of care has been dictated as directed. : I performed a history and examination of this patient, discussed the same with the dictator. I agree with the dictator's note ,documented as a scribe. Any additional findings or plans will be noted.
[2022-09-30 16:24] LABS: Chol/HDL Ratio 3.79 Ratio
[2022-09-30] MEDS: ASPIRIN 81 MG PO SCH (16:40)
--- NOTE | 2022-09-30 18:37 | US ---
EXAMINATION TYPE: US renal artery duplex complete DATE OF EXAM: 09/30/2022 COMPARISON: NONE CLINICAL INDICATION: Male, 66 years old with history of r/o renal artery stenosis; htn for 6 months TECHNIQUE: Duplex Doppler ultrasound examination of the renal arteries. FINDINGS: MEASUREMENTS: RENAL SIZE: Rt Kidney: 10.3 x 4.5 x 5.4cm Lt Kidney: 10.8 x 4.5 x 6.6cm No hydronephrosis on either side. RESISTANCE INDEX Right: 0.7 Left: 0.7 RA/AO RATIO (< 3.5 ) Right: 1.3 Left: 1.1 RA VELOCITY ( < 180 cm/s) Right: 86.4 Left: 73.2 Boat Tender notes: Multiple attempts made to see proximal left renal artery but bowel gas limits view IMPRESSION: Limited assessment on the left due to nonvisualization of the proximal left renal artery. However, th e normal resistive indices argues against renal artery stenosis on either side. If persistent clinica l concern or more definitive evaluation is desired consider CT angiography or contrast enhanced MR an giography.
[2022-10-01 00:36] VITALS: RESP 16
[2022-10-01] MEDS: PANTOPRAZOLE 40 MG TABLET PO SCH (07:00)
[2022-10-01] MEDS: amLODIPine 10 MG TAB PO SCH (08:08)
[2022-10-01] MEDS: LEFLUNOMIDE 20 MG TAB PO SCH (08:08)
[2022-10-01] MEDS: ASPIRIN 81 MG PO SCH (08:08)
[2022-10-01] MEDS: APIXABAN 5 MG TAB PO SCH (08:08)
[2022-10-01] MEDS: AMIODARONE 200 MG TAB PO SCH (08:08)
[2022-10-01] MEDS: cloNIDine HCL 0.2 MG TAB PO SCH (08:08)
[2022-10-01] MEDS: lisinopriL 20 MG TAB PO SCH (08:08)
[2022-10-01] MEDS: METOPROLOL SUCCINATE (ER) 50 MG TAB.ER.24H PO SCH (08:08)
[2022-10-01 08:24] VITALS: TEMP 97.6
--- NOTE | 2022-10-01 08:56 | P.PN ---
Subjective Progress Note Date: 09/30/22 Patient was seen for a follow-up. Patient states he is feeling fine. No new neurological symptoms. All symptoms have completely resolved. He feels back to baseline. Telemetry monitoring showing sinus rhythm. Objective - Vital Signs Vital signs: Vital Signs Temp 97.9 F 09/30/22 11:05 Pulse 69 09/30/22 11:05 Resp 16 09/30/22 11:05 BP 151/77 09/30/22 11:05 Pulse Ox 98 09/30/22 11:05 FiO2 Intake & Output 09/29/22 09/30/22 09/30/22 18:59 06:59 18:59 Intake Total 250 Balance 250 Weight 94.347 kg 94.347 kg Intake: Oral 250 Other: Voiding Method Toilet Toilet Urinal Urinal # Voids 1 - Exam Mental status, speech and language functions are normal. Examination is nonfocal. - Labs CBC & Chem 7: 09/29/22 09:30 09/30/22 09:15 Labs: Abnormal Lab Results - Last 24 Hours (Table) 09/30/22 Range/Units 09:15 Magnesium 2.4 H (1.6-2.3) mg/dL Assessment and Plan Assessment: * Probable stroke/TIA manifesting with transient nausea, vomiting, vertigo, right arm numbness and slurred speech. Symptoms resolved in 2 hours. At present patient has no symptoms and his NIH stroke scale is 0. * Hypertension * Atrial fibrillation, on Eliquis * Parkinsonian symptoms, rule out early onset Parkinson's disease * Mild alcohol consumption * Rheumatoid arthritis * History of bilateral knee and bilateral hip and right shoulder replacement. Plan: * Patient's symptoms have resolved. His NIH stroke scale is 0. * Continue Eliquis 5 mg twice a day. Agree with adding aspirin 81 mg daily. * 2-D echo revealed normal left ventricular size and systolic function with EF 55-60%. Mild concentric LVH. Left atrial size is normal. No significant abnormalities. * CTA head and neck showed: Mild noncalcified stenosis at the origin of the left ICA within the neck. Mild arteriosclerotic calcification of the carotid siphons without significant stenosis. No significant stenosis, filling defect or segmental occlusion of the intracranial arterial circulation. * Fasting a.m. lipid panel cholesterol 185, LDL 110, HDL 48 and triglycerides 131. Start Lipitor 40 mg daily to target LDL <70. * Hemoglobin A1c 5.6 * Optimize control of blood pressure. Currently running 151/77. * Telemetry at present showing sinus rhythm. Patient has history of A. fib, cardiology and board. Continue Eliquis * Patient has mild parkinsonian symptoms. Suggest patient follow up with neuro logist as an outpatient to rule out Parkinson's disease. We will hold off on any antiparkinsonian medication at this time. * Neurologically clear.
[2022-10-01] MEDS ORDERED: cloNIDine HCL 0.1 MG TAB PO STA (10:06)
[2022-10-01 12:03] VITALS: BP 118/81; PULSE 63
--- NOTE | 2022-10-01 12:13 | P.PN ---
Subjective Progress Note Date: 10/01/22 HISTORY OF PRESENT ILLNESS: This is a 66-year-old male who is a patient of Dr. Schultz. Patient was scheduled for outpatient cardioversion yesterday when he was found to have uncontrolled blood pressure and was complaining of right-sided numbness. His cardioversion was canceled and the patient was admitted to the hospital for further evaluation. He has been evaluated by neurology. Patient states his symptoms have resolved today. His blood pressures this morning remain uncontrolled. Echocardiogram completed revealing ejection fraction 55-60%, mild concentric LVH, and mild tricuspid regurgitation. 10/01/2022 Patient examined this morning at the bedside. Patient denies chest pain or pressure. He denies shortness of breath. Patient's blood pressure remains elevated, although improved. Renal artery Doppler did not reveal evidence of renal artery stenosis. Telemetry reveals atrial flutter with controlled ventricular rates. PHYSICAL EXAM: VITAL SIGNS: Reviewed. GENERAL: Well-developed in no acute distress. NECK: Supple. No JVD or thyromegaly LUNGS: Respirations even and unlabored. Lungs essentially clear to auscultation bilaterally. HEART: Irregular rate and rhythm. S1 and S2 heard. EXTREMITIES: Normal range of motion. No clubbing or cyanosis. Peripheral pulses intact. No lower extremity edema ASSESSMENT: Hypertensive urgency Possible TIA with right-sided numbness and slurred speech Persistent atrial fibrillation/typical atrial flutter PLAN: Continue current cardiac medications Patient is stable for discharge home today with close outpatient follow-up Nurse practitioner note has been reviewed by physician. Signing provider agrees with the documented findings, assessment, and plan of care. Objective - Vital Signs Vital signs: Vital Signs Temp 97.6 F 10/01/22 08:04 Pulse 63 10/01/22 11:00 Resp 16 10/01/22 11:00 BP 118/81 10/01/22 11:00 Pulse Ox 100 10/01/22 11:00 FiO2 Intake & Output 09/30/22 10/01/22 10/01/22 18:59 06:59 18:59 Intake Total 960 720 0 Balance 960 720 0 Weight 94.347 kg Intake: Oral 960 720 0 Other: Voiding Method Toilet Toilet Toilet Urinal Urinal Urinal # Voids 2 1 - Labs CBC & Chem 7: 09/29/22 09:30 09/30/22 09:15 Labs: Abnormal Lab Results - Last 24 Hours (Table) 09/29/22 Range/Units 11:07 Renin Direct <2.1 L (3.1 - 57.1) pg/mL
--- NOTE | 2022-10-01 13:28 | P.DS ---
Providers Date of admission: 09/29/22 12:47 Expected date of discharge: 10/01/22 Attending physician: Carmine King Consults: 09/29/22 10:38 Consult Physician Routine Consulting Provider: Papi Caceres Consult Reason/Comments: known Do you want consulting provider notified?: Already Contacted 09/29/22 11:06 Consult Physician Routine Consulting Provider: Van Torres Consult Reason/Comments: stroke Do you want consulting provider notified?: Yes Primary care physician: Carmine King Hospital Course: Final Diagnoses: Hypertensive urgency Possible TIA, right arm numbness and tingling, symptoms resolved Persistent atrial fibrillation, on Eliquis Possibly Parkinson's disorder as per neurology, further workup outpatient with neurology recommended History of CVA, TIA History of Alcohol use, currently decreased Rheumatoid arthritis Hospital course:This is a 66-year-old gentleman with past medical history significant for atrial flutter, hypertension, alcohol use, TIA and multiple other medical issues, admitted initially yesterday for cardioversion. Developed hypertensive urgency with accompanying right arm numbness and tingling while in preop. Cardioversion canceled, transported to the ER, symptoms resolved and patient spontaneously converted to sinus rhythm. Echo completed reporting normal LV function, EF 55-60%,. Hypertensive, systolic blood pressure this mo rning in the 180s. Chest x-ray reported no acute process .Neuro workup in progress. Significant clinical improvement. Antihypertensives further adjusted as per cardiology blood pressures better controlled. Denies chest pain, palpitations or shortness of breath. Denies lightheadedness, dizziness or focal deficits. Cleared by neurology with further workup outpatient regarding mild parkinsonian symptoms. Denies numbness or tingling. Denies motor strength loss. Patient will be discharged home today in a stable condition with guarded prognosis. The impression and plan of care has been dictated as directed. : I performed a history and examination of this patient, discussed the same with the dictator. I agree with the dictator's note ,documented as a scribe. Any additional findings or plans will be noted. Patient Condition at Discharge: Stable Plan - Discharge Summary Discharge Rx Participant: No New Discharge Prescriptions: New Aspirin EC [Ecotrin Low Dose] 81 mg PO DAILY #1 tab Pantoprazole [Protonix] 40 mg PO AC-BID #60 tab Atorvastatin [Lipitor] 40 mg PO HS #30 tab Continue Omeprazole [PriLOSEC] 40 mg PO DAILY Apixaban [Eliquis] 5 mg PO BID #60 tab Amiodarone [Cordarone] 200 mg PO BID Abatacept [Orencia] 750 mg IV Q28D Leflunomide [Arava] 20 mg PO DAILY amLODIPine BESYLATE/BENAZEPRIL [Lotrel 10-40 mg Capsule] 1 cap PO DAILY Metoprolol Succinate (ER) [Toprol XL] 50 mg PO DAILY Changed cloNIDine HCL 0.3 mg PO BID #0 Discharge Medication List Leflunomide [Arava] 20 mg PO DAILY 03/08/22 [History] Omeprazole [PriLOSEC] 40 mg PO DAILY 03/08/22 [History] Apixaban [Eliquis] 5 mg PO BID #60 tab 03/09/22 [Rx] Amiodarone [Cordarone] 200 mg PO BID 08/29/22 [History] Abatacept [Orencia] 750 mg IV Q28D 09/29/22 [History] Metoprolol Succinate (ER) [Toprol XL] 50 mg PO DAILY 09/29/22 [History] amLODIPine BESYLATE/BENAZEPRIL [Lotrel 10-40 mg Capsule] 1 cap PO DAILY 09/29/22 [History] Pantoprazole [Protonix] 40 mg PO AC-BID #60 tab 09/30/22 [Rx] Aspirin EC [Ecotrin Low Dose] 81 mg PO DAILY #1 tab 10/01/22 [Rx] Atorvastatin [Lipitor] 40 mg PO HS #30 tab 10/01/22 [Rx] cloNIDine HCL 0.3 mg PO BID #0 10/01/22 [Rx] Follow up Appointment(s)/Referral(s): Carmine King DO [Primary Care Provider] - 10/06/22 10:40 am (With [facility] SHIPPER/RECEIVER.) Tao Gamboa DO [STAFF PHYSICIAN] - 2 Weeks (Patient information faxed to office. Office to call patient with appointment date/time.) Papi Caceres MD [STAFF PHYSICIAN] - 10/14/22 8:30 am Patient Instructions/Handouts: Transient Ischemic Attack (DC), A-fib (Atrial Fibrillation) (DC), Hypertension (DC)
[2022-10-01] MEDS ORDERED: cloNIDine HCL 0.1 MG TAB PO SCH (21:00)
[2022-10-01] MEDS ORDERED: ATORVASTATIN 40 MG TAB PO SCH (21:00)
== END 2022-10-01 14:29 | disposition home or self-care (01) ==
LOC: EC 09:17 → OBSVTOIN 12:47 → INTOOBSV 12:47 → 3SCARD 12:47
PROVIDERS: ADMIT Family Medicine; ATTEND Family Medicine
DX: I16.0 Hypertensive urgency (principal); R20.2 Paresthesia of skin; R20.0 Anesthesia of skin; F03.90 Unspecified dementia, unspecified severity, without behavioral disturbance, psychotic disturbance, mood disturbance, and anxiety; I48.19 Other persistent atrial fibrillation; K21.9 Gastro-esophageal reflux disease without esophagitis; I10 Essential (primary) hypertension; M06.9 Rheumatoid arthritis, unspecified; G25.81 Restless legs syndrome; G62.89 Other specified polyneuropathies; H91.8X2 Other specified hearing loss, left ear; F10.90 Alcohol use, unspecified, uncomplicated; M19.019 Primary osteoarthritis, unspecified shoulder; M47.819 Spondylosis without myelopathy or radiculopathy, site unspecified; I48.92 Unspecified atrial flutter; I07.1 Rheumatic tricuspid insufficiency; I37.1 Nonrheumatic pulmonary valve insufficiency; Z96.643 Presence of artificial hip joint, bilateral; Z79.899 Other long term (current) drug therapy; Z79.01 Long term (current) use of anticoagulants; Z86.73 Personal history of transient ischemic attack (TIA), and cerebral infarction without residual deficits; Z96.653 Presence of artificial knee joint, bilateral; Z96.611 Presence of right artificial shoulder joint
CPT/HCPCS: 36415; 71046; 80048; 80053; 80061; 82088; 82533; 82550; 83036; 83735; 83835; 84244; 84484; 85025; 85610; 85730; 93005; 93306; 93975; 94760; 96374; 99285

== ENCOUNTER → 2022-09-29 | Day surgery (SDC) | payer MEDICARE ==
[2022-09-26 10:27] VITALS: BMI 28.4
[~2022-09-29] MED LIST changes: -DEXAMETHASONE SOD PHOSPHATE 10 MG/ML 1 ML VIAL IV ONE; -GLYCOPYRROLATE 0.2 MG/ML 2 ML VIAL ONE; -HYDROmorphone 0.5 MG/0.5 ML SYRINGE IVP PRN; -LACTATED RINGERS 1,000 ML IV SCH; -LIDOCAINE 1% INJ 10MG/ML (20 ML MDV) ONE; +METOPROLOL TARTRATE 50 MG TAB PO ONE; +METOPROLOL TARTRATE 50 MG TAB PO STA; -MIDAZOLAM 2 MG/2 ML VIAL IV ONE; -MIDAZOLAM 2 MG/2 ML VIAL IV PRN; -MIDAZOLAM 2 MG/2 ML VIAL ONE; -NEOSTIGMINE 1 MG/ML 10 ML VIAL ONE; +NITROPRUSSIDE 50 MG in DEXTROSE 5% IN WATER 250 ML IV ONE; -ONDANSETRON 4 MG/2 ML VIAL IVP ONE; -PHENYLEPHRINE-0.9% NACL SYG 1 MG/10 ML SYRINGE ONE; -PROPOFOL 10 MG/ML 20 ML VIAL IV ONE; -ROCURONIUM BROMIDE 10 MG/ML 10 ML VIAL IV ONE; -ROPIVACAINE 0.2%-NS ON-Q PUMP 1,090 MG, EMPTY PAIN BALL 1 EACH MISCELLANE PRN; -SCOPOLAMINE 1.5MG/72HR PATCH TRANSDERM ONE; +amLODIPine 10 MG TAB PO SCH; +cloNIDine HCL 0.1 MG TAB PO STA; -fentaNYL (PF) 50 MCG/ML 2 ML AMP ONE; +hydrALAZINE HCL 50 MG TAB PO STA; +lisinopriL 20 MG TAB PO SCH
[2022-09-29 07:39] VITALS: TEMP 97.1
[2022-09-29 09:05] LABS: Glucose,Whole Blood 105 mg/dL (70-110)
--- NOTE | 2022-09-29 09:18 | CT ---
Head CT without contrast HISTORY: Code stroke. COMPARISON: None TECHNIQUE: Multiple axial images are obtained from skull base to vertex without use of IV contrast ma terial. The ventricles, basal cisterns and sulci over convexities are within normal limits for the patient's age. No abnormal density is seen throughout the brain parenchyma. There is no acute intra or extra-axial h emorrhage. The posterior fossa including the brainstem, fourth ventricle and cerebellar pontine angles appear gr ossly normal. The intraorbital contents appear normal and symmetric. Visualized paranasal sinuses and mastoid air cells are well aerated. IMPRESSION: No acute bleed or mass effect. Mild age appropriate atrophy.
[2022-09-29 09:44] VITALS: BP 167/119; PULSE 99; RESP 18
--- NOTE | 2022-09-29 10:06 | CT ---
EXAMINATION TYPE: CODE STROKE: CTA head neck DATE OF EXAM: 09/29/2022 HISTORY: Right arm weakness, HBP COMPARISON: None CT DLP: 619.9 mGycm. Automated Exposure Control for Dose Reduction was Utilized. TECHNIQUE: CTA scan of the head and neck is performed with IV Contrast, patient injected with 65 mL of Isovue 370, axial images are obtained, coronal and sagittal reformatted images are reviewed. 3D re constructed images are created on an independent workstation and reviewed. FINDINGS: The brachiocephalic origins are widely patent and there is no significant stenosis or arterioscleroti c calcification. There is a mild noncalcified stenosis of the origin of the left internal carotid artery within the ne ck. The common carotid arteries and were right internal carotid artery widely patent. Vertebral arter ies are symmetric and widely patent without significant stenosis. Intracranially, there is no significant stenosis, segmental occlusion, sizable aneurysm sac or vascul ar malformation. There is mild arteriosclerotic calcification of the carotid siphons without signific ant stenosis.. IMPRESSION: 1. Mild noncalcified stenosis at the origin of the left internal carotid artery within the neck. 2. Mild arteriosclerotic calcifications of the carotid siphons without significant stenosis. 3. No significant stenosis, filling defect or segmental occlusion of the intracranial arterial circul ation.
== END ==
LOC: OR 07:10
PROVIDERS: ATTEND Internal Medicine Cardiovascular Disease
DX: I65.22 Occlusion and stenosis of left carotid artery (principal); G31.9 Degenerative disease of nervous system, unspecified; I10 Essential (primary) hypertension; I48.91 Unspecified atrial fibrillation; M06.9 Rheumatoid arthritis, unspecified; Z79.01 Long term (current) use of anticoagulants; Z79.899 Other long term (current) drug therapy
CPT/HCPCS: 70496; 70498; Q9967; 70450

== ENCOUNTER 2022-10-08 16:52 | Emergency (ER) | payer MEDICARE ==
--- NOTE | 2022-10-08 17:03 | ED ---
Chest Pain HPI - General Source: RN notes reviewed <Bianka Dean - Last Filed: 10/08/22 17:02> - General Source: patient, RN notes reviewed, old records reviewed <Riky Somers - Last Filed: 10/08/22 20:17> - General Stated Complaint: Headache nausea, recent stroke Time Seen by Provider: 10/08/22 17:02 - History of Present Illness Initial Comments: Patient is a 66-year-old male presents to the emergency department for lightheadedness. Patient states he felt lightheaded with nausea which started at 8:30 this morning. Patient states last week he was post cardioversion for atrial flutter but had a TIA therefore procedure wasn't done. States he felt similar to this last week before cardioversion. Per discharge summary patient spontaneously converted to sinus rhythm. Patient does have some chest pressure today without shortness of breath. No speech changes, focal weakness. (Bianka Dean) This is a 66-year-old male who presents emergency Department stating he was recently brought in the hospital for atrial fibrillation he cardioverted on his own. Patient states he also had a small stroke when he was here. Patient comes in today because he started having dizziness like he was given a fall over and needed to grab onto things to stay balance. Patient states he had a history of vertigo in the past that was very similar. Patient states he also is mildly nauseated. Patient denies any significant headache. Patient denies numbness weakness. Patient is chest pain palpitations difficulty breathing shortness breath per patient denies any fever chills or cough. Patient denies any abdominal pain patient with any vomiting or diarrhea. Patient states she's had no problem with coordination (Riky Somers) - Related Data Home Medications Medication Instructions Recorded Confirmed Leflunomide [Arava] 20 mg PO DAILY 03/08/22 09/29/22 Omeprazole [PriLOSEC] 40 mg PO DAILY 03/08/22 09/29/22 Amiodarone [Cordarone] 200 mg PO BID 08/29/22 09/29/22 Abatacept [Orencia] 750 mg IV Q28D 09/29/22 09/29/22 Metoprolol Succinate (ER) [Toprol 50 mg PO DAILY 05/15/23 05/15/23 XL] amLODIPine BESYLATE/BENAZEPRIL 1 cap PO DAILY 09/29/22 09/29/22 [Lotrel 10-40 mg Capsule] Previous Rx's Medication Instructions Recorded Apixaban [Eliquis] 5 mg PO BID #60 tab 03/09/22 Pantoprazole [Protonix] 40 mg PO AC-BID #60 tab 09/30/22 Aspirin EC [Ecotrin Low Dose] 81 mg PO DAILY #1 tab 10/01/22 Atorvastatin [Lipitor] 40 mg PO HS #30 tab 10/01/22 cloNIDine HCL 0.3 mg PO BID #0 10/01/22 Meclizine [Antivert] 25 mg PO TID #20 tab 10/08/22 Allergies Allergy/AdvReac Type Severity Reaction Status Date / Time No Known Allergies Allergy Verified 10/08/22 17:03 Review of Systems ROS Other: All systems not noted in ROS Statement are negative. <Bianka Dean - Last Filed: 10/08/22 17:02> ROS Other: All systems not noted in ROS Statement are negative. <Riky Somers - Last Filed: 10/08/22 20:17> ROS Statement: Those systems with pertinent positive or pertinent negative responses have been documented in the HPI. Past Medical History Past Medical History: Atrial Fibrillation, CVA/TIA, GERD/Reflux, Hearing Disorder / Deafness, Hypertension, Osteoarthritis (OA), Rheumatoid Arthritis (RA) Additional Past Medical History / Comment(s): RLS, neuropathy feet, TIA X3-last one 10 yrs ago-no residual effects, vertigo, deaf in left ear. History of Any Multi-Drug Resistant Organisms: None Reported Past Surgical History: Appendectomy, Joint Replacement, Orthopedic Surgery Additional Past Surgical History / Comment(s): Bilateral hip and knee replacements, multiple bilateral knee arthroscopies, right shoulder arthroscopy, DEYSI. Past Anesthesia/Blood Transfusion Reactions: No Reported Reaction Past Psychological History: No Psychological Hx Reported Smoking Status: Never smoker Past Alcohol Use History: Occasional Additional Past Alcohol Use History / Comment(s): "Doesn't really drink anymore." Past Drug Use History: None Reported Additional Drug Use History / Comment(s): Occasionally in the past, "none for a while." - Past Family History Mother Family Medical History: No Reported History <Bianka Dean - Last Filed: 10/08/22 17:02> General Exam <Bianka Dean - Last Filed: 10/08/22 17:02> <Riky Somers - Last Filed: 10/08/22 20:17> - General Exam Comments Initial Comments: Visual Physical Exam Vital signs reviewed General: Well-appearing, nontoxic, no acute distress. Head: Normocephalic, atraumatic Eyes: PERRLA, EOMI ENT: Airway patent Chest: Nonlabored breathing Skin: No visual rash, normal skin tone Neuro: Alert and oriented 3 Musculoskeletal: No gross abnormalities (Bianka Dean) GENERAL: Patient is well-developed and well-nourished. Patient is nontoxic and well- hydrated and is in mild distress. ENT: Neck is soft and supple. No significant lymphadenopathy is noted. Oropharynx is clear. Moist mucous membranes. Neck has full range of motion without eliciting any pain. There is no thyroid enlargement and no masses were felt. Patient has some horizontal nystagmus looking to the left EYES: The sclera were anicteric and conjunctiva were pink and moist. Extraocular movements were intact and pupils were equal round and reactive to light. Eyelids were unremarkable. PULMONARY: Unlabored respirations. Good breath sounds bilaterally. No audible rales rhonchi or wheezing was noted. CARDIOVASCULAR: There is a regular rate and rhythm without any murmurs gallops or rubs. ABDOMEN: Soft and nontender with normal bowel sounds. No palpable organomegaly was no lino. There is no palpable pulsatile mass. SKIN: Skin is clear with no lesions or rashes and otherwise unremarkable. NEUROLOGIC: Patient is alert and oriented x3. Cranial nerves II through XII are grossly intact. Motor and sensory are also intact. Normal speech, volume and content. Symmetrical smile. Finger to nose testing is normal bilaterally MUSCULOSKELETAL: Normal extremities with adequate strength and full range of motion. No lower extremity swelling or edema. No calf tenderness. LYMPHATICS: No significant lymphadenopathy is noted PSYCHIATRIC: Normal psychiatric evaluation. (Riky Somers) Course Vital Signs 10/08/22 10/08/22 16:55 18:15 Temperature 98.2 F 98.5 F Pulse Rate 66 61 Respiratory 20 18 Rate Blood Pressure 184/80 178/86 O2 Sat by Pulse 99 99 Oximetry Chest Pain MDM <Riky Somers - Last Filed: 10/08/22 20:17> - [facility] EKG as interpreted by myself. EKG shows a sinus rhythm at 64 bpm ID interval is 204 QRS is 95 QT interval 370 QTC is 346. Patient's EKG shows no ST segment elevation or depression. Was pt. sent in by a medical professional or institution (, PA, SOLIDS CONTROL TECHNICIAN, urgent care, hospital, or intermediate...) When possible be specific @ -No Did you speak to anyone other than the patient for history (EMS, parent, family, police, friend...)? What history was obtained from this source @ -No Did you review nursing and triage notes (agree or disagree)? Why? @ -I reviewed and agree with nursing and triage notes Were old charts reviewed (outside hosp., previous admission, EMS record, old EKG, old radiological studies, urgent care reports/EKG's, intermediate records)? Report findings @ -No old charts were reviewed Differential Diagnosis (chest pain, altered mental status, abdominal pain women, abdominal pain men, vaginal bleeding, weakness, fever, dyspnea, syncope, headache, dizziness, GI bleed, back pain, seizure, CVA, palpatations, mental health, musculoskeletal)? @ -Differential Dizziness: Benign paroxysmal positional Vertigo, Menieres disease, otitis media, acoustic neuroma, vertebrobasilar insufficiency, cerebellar stroke, encephalitis, hypovolemic, arrhythmia, coronary artery syndrome, anemia, this is not meant to be an all-inclusive list EKG interpreted by me (3pts min.). @ -As above X-rays interpreted by me (1pt min.). @ -Chest x-ray shows no acute abnormality. CT interpreted by me (1pt min.). @ -None done U/S interpreted by me (1pt. min.). @ -None done What testing was considered but not performed or refused? (CT, X-rays, U/S, labs)? Why? @ -None What meds were considered but not given or refused? Why? @ -None Did you discuss the management of the patient with other professionals (professionals i.e. , RUTHY, SOLIDS CONTROL TECHNICIAN, lab, RT, psych nurse, social media assistant, architectural modeler, teacher, residential care officer, manager rn case)? Give summary @ -No Was smoking cessation discussed for >3mins.? @ -No Was critical care preformed (if so, how long)? @ -No Were there social determinants of health that impacted care today? How? (Homelessness, low income, unemployed, alcoholism, drug addiction, transportation, low edu. Level, literacy, decrease access to med. care, [facility], rehab)? @ -No Was there de-escalation of care discussed even if they declined (Discuss DNR or withdrawal of care, Hospice)? DNR status @ -No What co-morbidities impacted this encounter? (DM, HTN, Smoking, COPD, CAD, Cancer, CVA, ARF, Chemo, Hep., AIDS, mental health diagnosis, sleep apnea, morbid obesity)? @ -None Was patient admitted / discharged? Hospital course, mention meds given and route, prescriptions, significant lab abnormalities, going to OR and other pertinent info. @ -Patient was reexamined after about 2 hours and he had much improvement of his dizziness. Patient thinks it is vertigo which is what he had before. Patient was given some potassium for is 3.2 potassium and an [place] before he left. Patient was instructed to take Antivert as needed when they go home. Undiagnosed new problem with uncertain prognosis? @ -No Drug Therapy requiring intensive monitoring for toxicity (Heparin, Nitro, Insulin, Cardizem)? @ -No Were any procedures done? @ -No Diagnosis/symptom? @ -Vertigo Acute, or Chronic, or Acute on Chronic? @ -Acute Uncomplicated (without systemic symptoms) or Complicated (systemic symptoms)? @ -Complicated Side effects of treatment? @ -No Exacerbation, Progression, or Severe Exacerbation? @ -No Poses a threat to life or bodily function? How? (Chest pain, [place], [place], pneumonia, PE, COPD, DKA, ARF, appy, cholecystitis, CVA, Diverticulitis, Homicidal, Suicidal, threat to staff... and all critical care pts) @ -No (Riky Somers) Disposition <Bianka Dean - Last Filed: 10/08/22 17:02> Is patient prescribed a controlled substance at d/c from ED?: No Time of Disposition: 20:16 <Riky Somers - Last Filed: 10/08/22 20:17> Clinical Impression: Vertigo, Hypokalemia Disposition: HOME SELF-CARE Condition: Good Instructions (If sedation given, give patient instructions): Vertigo (ED) Prescriptions: Meclizine [Antivert] 25 mg PO TID #20 tab Referrals: Carmine King DO [Primary Care Provider] - 1-2 days
[2022-10-08 17:41] LABS: Basophils # (A) 0.1 k/uL (0-0.2); Basophils % (A) 1 %; Eosinophils # (A) 0.1 k/uL (0-0.7); Eosinophils % (A) 2 %; HCT 42.3 % (39.0-53.0); Lymphocytes # (A) 1.9 k/uL (1.0-4.8); Lymphocytes % (A) 31 %; MCH 31.9 pg (25.0-35.0); MCHC 33.2 g/dL (31.0-37.0); Mean Platelet Volume 8.4; Monocytes # (A) 0.7 k/uL (0-1.0); Monocytes % (A) 11 %; Neutrophils # (A) 3.2 k/uL (1.3-7.7); Neutrophils % (A) 52 %; Platelet Count 248 k/uL (150-450); RBC 4.41 m/uL (4.30-5.90); RDW 14.1 % (11.5-15.5); WBC 6.2 k/uL (3.8-10.6)
[2022-10-08 17:46] LABS: Partial Thromboplastin Time 25.2 sec (22.0-30.0); Prothrombin Time 10.8 sec (9.0-12.0)
[2022-10-08 17:52] LABS: Calcium 8.7 mg/dL (8.4-10.2); Potassium 3.2 mmol/L (3.5-5.1); Total Bilirubin 0.6 mg/dL (0.2-1.3); Total Protein 6.5 g/dL (6.3-8.2)
--- NOTE | 2022-10-08 18:31 | XR ---
EXAMINATION TYPE: XR chest 2V DATE OF EXAM: 10/08/2022 COMPARISON: 09/29/2022 INDICATION: Chest pain TECHNIQUE: Frontal and lateral views of the chest are obtained. FINDINGS: The heart size is normal. The pulmonary vasculature is normal. The lungs are clear. IMPRESSION: 1. No acute pulmonary process.
[2022-10-08 19:23] LABS: Appearance,Urine Clear (Clear); Bilirubin,Urine Negative (Negative); Blood,Urine Negative (Negative); Color,Urine Yellow; Glucose,Urine (UA) Negative (Negative); Ketones,Urine Negative (Negative); Leukocyte Esterase,Urine Negative (Negative); Mucus,Urine Many /hpf; Nitrite,Urine Negative (Negative); PH, Urine 5.5 (5.0-8.0); Protein,Urine 1+ (Negative); RBC,Urine <1 /hpf (0-5); Specific Gravity,Urine 1.029 (1.001-1.035); Squamous Epithelial Cell,Urine <1 /hpf (0-4); WBC,Urine 1 /hpf (0-5)
[2022-10-08] MEDS ORDERED: POTASSIUM CHLORIDE ER 20 MEQ TAB.ER PO STA (19:47)
[2022-10-08] MEDS ORDERED: MECLIZINE 25 MG TAB PO STA (19:47)
[2022-10-08 20:29] VITALS: BP 171/97; PULSE 56; RESP 17; TEMP 98
== END 2022-10-08 20:34 | disposition home or self-care (01) ==
LOC: EC 16:52
DX: E87.6 Hypokalemia (principal); R42 Dizziness and giddiness; I10 Essential (primary) hypertension; K21.9 Gastro-esophageal reflux disease without esophagitis; M06.9 Rheumatoid arthritis, unspecified; Z79.899 Other long term (current) drug therapy; Z86.73 Personal history of transient ischemic attack (TIA), and cerebral infarction without residual deficits
CPT/HCPCS: 36415; 71046; 80053; 81001; 83605; 84484; 85025; 85610; 85730; 93005; 99284

== ENCOUNTER → 2023-06-08 | Outpatient (CLI) | payer MEDICARE ==
[2023-06-08 15:08] LABS: HGB 14.5 g/dL (13.0-17.0); MCH 33.5 pg (27.0-32.0); MCHC 33.7 g/dL (32.0-37.0); MCV 99.3 FL (80.0-97.0); Mean Platelet Volume 11.3 FL (9.5-12.2); NRBC Per 100 WBC 0 X 10*3/uL (0.00-0.01); Platelet Count 323 X 10*3/uL (140-440); RBC 4.33 X 10*6/uL (4.40-5.60); RDW 13.4 % (11.5-14.5); WBC 12.83 X 10*3/uL (4.50-10.00)
[2023-06-08 15:11] LABS: BUN/Creat Ratio 19.64 Ratio (12.00-20.00); Blood Urea Nitrogen 21.6 mg/dL (9.0-27.0); Calcium 9.2 mg/dL (8.7-10.3); Carbon Dioxide 24.9 mmol/L (21.6-31.8); Chloride 105 mmol/L (96-109); Glucose 121 mg/dL (70-110); Potassium 4.6 mmol/L (3.5-5.5); Sodium 140 mmol/L (135-145)
[2023-06-08 15:35] LABS: Basophils # (A) 0.05 X 10*3/uL (0.00-0.10); Basophils % (A) 0.4 %; Eosinophils # (A) 0.03 X 10*3/uL (0.04-0.35); Eosinophils % (A) 0.2 %; Lymphocytes # (A) 1.72 X 10*3/uL (0.90-5.00); Lymphocytes % (A) 13.4 %; Monocytes # (A) 1.58 X 10*3/uL (0.20-1.00); Monocytes % (A) 12.3 %; Neutrophils % (A) 71.8 %; RBC Morphology Normal (Normal)
== END | disposition home or self-care (01) ==
LOC: LABWHC1 10:52
PROVIDERS: ATTEND Orthopaedic Surgery Hand Surgery
DX: Z01.812 Encounter for preprocedural laboratory examination (principal); G56.01 Carpal tunnel syndrome, right upper limb
CPT/HCPCS: 36415; 80048; 85025

== ENCOUNTER 2023-06-24 06:34 | Day surgery (SDC) | payer MEDICARE ==
--- NOTE | 2023-06-22 15:29 | P.HPOR ---
History of Present Illness H&P Date: 06/22/23 Subjective: This is a 67 year old male that presents today for initial evaluation regarding a several month history of progressively worsening right hand numbness and tingling and weakness that is mainly isolated to the thumb, index and middle fingers. He states he has a 35 year history of rheumatoid arthritis and has noticed numbness and tingling over the past year that has worsened over the last 6 months and is becoming constant. He had a carpal tunnel steroid injection into the right wrist in March by his chocolate temperer and got 50% relief from his symptoms for 2 weeks but his symptoms have returned, he has also tried wrist bracing at night with minimal relief. Physical Examination: RUE: AIN/PIN/Radial/Ulnar/Median motor intact. Radial/Ulnar/Median SILT, numbness present in thumb, index, middle and ring. 2+/4 Radial/Ulnar pulses palpated. 5/5 APB, 5/5 FDI. Negative Finkelsteins, negative CMC grind, positive Durkan's compression. Imaging: X-Rays of the right hand 3V taken in office today demonstrate advanced degenerative changes at the DRUJ. Arthritic changesa the the index and middle finger MCP joints. Impression: 1.) B/L Carpal tunnel syndrome 2.) Rheumatoid arthritis Plan: Diagnosis and treatment options were discussed with the patient. He has failed conservative treatment for his carpal tunnel syndrome and would like to proceed with a right endoscopic versus open carpal tunnel release. Risks and benefits of surgery including bleeding, infection, damage to surrounding tissue, need for further surgery, possible need to convert to open procedure, residual numbness were discussed and the patient wished to go forward with surgery.The patient was agreeable with this plan. CC: Carmine King DO -Jayesh Tam DO Orthopedic Hand/Upper Extremity Surgeon Past Medical History Past Medical History: Atrial Fibrillation, CVA/TIA, GERD/Reflux, Hearing Disorder / Deafness, Hypertension, Osteoarthritis (OA), Rheumatoid Arthritis (RA) Additional Past Medical History / Comment(s): RLS, neuropathy feet, TIA X3-last one 10 yrs ago-no residual effects, vertigo, deaf in left ear. pt states he has not taken his eliquis since end of February 2023 due to insurance issues. pt instructed to call Dr Rhett Caceres History of Any Multi-Drug Resistant Organisms: None Reported Past Surgical History: Appendectomy, Joint Replacement, Orthopedic Surgery Additional Past Surgical History / Comment(s): Bilateral hip and knee replacements, multiple bilateral knee arthroscopies, right shoulder arthroscopy, DEYSI. Past Anesthesia/Blood Transfusion Reactions: No Reported Reaction Smoking Status: Never smoker - Past Family History Mother Family Medical History: No Reported History Medications and Allergies Home Medications Medication Instructions Recorded Confirmed Type Leflunomide [Arava] 20 mg PO DAILY 03/08/22 06/19/23 History Omeprazole [PriLOSEC] 40 mg PO DAILY 03/08/22 06/19/23 History Apixaban [Eliquis] 5 mg PO BID #60 tab 03/09/22 06/19/23 Rx Amiodarone [Cordarone] 200 mg PO BID 08/29/22 06/19/23 History Metoprolol Succinate (ER) [Toprol 50 mg PO DAILY 09/29/22 06/19/23 History XL] amLODIPine BESYLATE/BENAZEPRIL 1 cap PO DAILY 09/29/22 06/19/23 History [Lotrel 10-40 mg Capsule] Pantoprazole [Protonix] 40 mg PO AC-BID #60 tab 09/30/22 06/19/23 Rx Aspirin EC [Ecotrin Low Dose] 81 mg PO DAILY #1 tab 10/01/22 06/19/23 Rx Atorvastatin [Lipitor] 40 mg PO HS #30 tab 10/01/22 06/19/23 Rx cloNIDine HCL 0.3 mg PO BID #0 10/01/22 06/19/23 Rx Meclizine [Antivert] 25 mg PO TID #20 tab 10/08/22 06/19/23 Rx Allergies Allergy/AdvReac Type Severity Reaction Status Date / Time No Known Allergies Allergy Verified 06/19/23 09:28 Physical Examination Osteopathic Statement: *. No significant issues noted on an osteopathic structural exam other than those noted in the History and Physical/Consult.
[2023-06-24] MEDS ORDERED: LIDOCAINE 1% (10MG/ML) FOR IV START INTRADERMA PRN (06:44)
[2023-06-24] MEDS ORDERED: MIDAZOLAM 2 MG/2 ML VIAL IV PRN (07:00)
[2023-06-24] MEDS ORDERED: HYDROmorphone 0.5 MG/0.5 ML SYRINGE IVP PRN (07:00)
[2023-06-24 07:05] LABS: Glucose,Whole Blood 101 mg/dL (70-110)
[2023-06-24] MEDS: LACTATED RINGERS 1,000 ML IV SCH (07:12)
[2023-06-24] MEDS: DEXAMETHASONE SOD PHOSPHATE 4 MG/ML 1 ML VIAL IV ONE (07:16)
[2023-06-24] MEDS: ONDANSETRON 4 MG/2 ML VIAL IVP ONE (07:17)
[2023-06-24] MEDS ORDERED: MIDAZOLAM 2 MG/2 ML VIAL ONE (07:50)
[2023-06-24] MEDS ORDERED: fentaNYL (PF) 50 MCG/ML 2 ML AMP ONE (07:50)
[2023-06-24] MEDS ORDERED: PROPOFOL 10 MG/ML 20 ML VIAL IV ONE (07:50)
[2023-06-24] MEDS: BUPIVACAINE (PF) 0.5% 30 ML VIAL SQ ONE ×2 (07:52→07:57)
[2023-06-24] MEDS: LIDOCAINE 2% INJ 20 MG/ML SQ ONE ×2 (07:52→07:57)
--- NOTE | 2023-06-24 08:12 | P.OP ---
Date of Procedure: 06/24/23 Preoperative Diagnosis: Right carpal tunnel syndrome Postoperative Diagnosis: Right carpal tunnel syndrome Procedure(s) Performed: Right endoscopic carpal tunnel release Anesthesia: MAC Surgeon: Jayesh Tam Installation And Repair Technician #1: Cesar Roman Estimated Blood Loss (ml): 0 Pathology: none sent Condition: stable Disposition: PACU Description of Procedure: This is a 67 year old male who presents today for a right endoscopic carpal tunnel release after having failed conservative treatment in the past. Risks and benefits of surgery were discussed with the patient including bleeding, damage to surrounding tissue, infection, need to convert to open procedure, need for further surgery as well as risks of anesthesia including pulmonary embolism and even and the patient wished to proceed with surgical intervention. The patients was seen in the pre-operative area by myself. Consent and H&P were completed and updated. The correct extremity was marked in the pre-operative area by myself and all other questions were answered. Operative Narrative: The patient was brought to the operating room by the department of anesthesia. They remained on the portable stretcher and a rolling hand table was brought to the side of the operative extremity. Pre-operative time out was performed indicating the correct patient, procedure and laterality. All in the room agreed. The patient was then drifted off to sleep by the department of anes thesia. MAC anesthesia was utilized and a 50:50 mixture of 1% Lidocaine and 0.5% bupivacaine was injected into the subcutaneous tissues of the palmar skin, 8ccs total. A nonsterile tourniquet was then applied to the operative extremity and the right upper extremity was then prepped and draped in normal sterile fashion. The operative extremity was the exsanguinated with an esmarch bandage and the tourniquet was inflated to 250mmHg. 15 blade scalpel was utilized to make a transverse incision on the palmar skin just ulnar to the palmaris longus tendon at the level of the distal wrist crease. Ragnell retractor was then placed radially and blunt dissection was performed to reveal the distal forearm fascia. This was lifted with fine Jeffery pick ups and Littler tenotomy scissors were then used to open the forearm fascia transversely and a double skin hook was then placed. Hamate finder was placed into the carpal tunnel and then sequential sized dilators were inserted followed by the synovial elevator to separate the flexor tenosynovium from the undersurface of the transverse carpal ligament and a washboard texture was felt. The MicroAire endoscopic carpal tunnel release system gun was the then inserted into the carpal tunnel hugging the deep portion of the transverse carpal ligament in line with the base of the ring finger. Transverse fibers of the ligament were directly visualized. Pressure was applied on the palm to reveal the distal extent of the transverse carpal ligament. The blade was then deployed and the distal half of the transverse carpal ligament was released. The scope was then brought distal again and remaining transverse fibers were incised with the blade. The proximal half of the transverse carpal ligament was then divided and again the scope was advanced distal and remaining transverse fibers were incised with the blade. The radial and ulnar leaflets were directly visualized and mobile consistent with complete release. Tenotomy scissors were then util ized to release the remaining distal forearm fascia under direct visualization taking care to preserve the palmar cutaneous branch of the median nerve. Skin closure was performed with interrupted 4-0 Monocryl suture followed by steri strips. Sterile dressing was applied consisting 4x4s, Webril, and an luh bandage. Tourniquet was let down and the hand immediately was well perfused. The patient was then woken by the department of anesthesia and transferred to PACU in stable condition. Cesar BLISS was present for the case in its entirety and assisted in major portions of the case and protection of vital neurovascular structures. Jayesh Tam D.O. Orthopedic Hand/Upper Extremity Surgeon
[2023-06-24 08:40] VITALS: RESP 16; TEMP 98.2
[2023-06-24 09:43] VITALS: BP 143/90; PULSE 67
== END 2023-06-24 09:52 | disposition home or self-care (01) ==
LOC: OR 06:34
PROVIDERS: ATTEND Orthopaedic Surgery Hand Surgery
DX: G56.01 Carpal tunnel syndrome, right upper limb (principal); G25.81 Restless legs syndrome; I10 Essential (primary) hypertension; I48.91 Unspecified atrial fibrillation; K21.9 Gastro-esophageal reflux disease without esophagitis; M06.9 Rheumatoid arthritis, unspecified; Z79.01 Long term (current) use of anticoagulants; Z86.73 Personal history of transient ischemic attack (TIA), and cerebral infarction without residual deficits; Z79.899 Other long term (current) drug therapy
CPT/HCPCS: 29848; J2001; J2250; J1100; J2405; J3010; J2704; J0665

== ENCOUNTER → 2024-08-12 | Outpatient (CLI) | payer MEDICARE ==
[2024-08-12 15:49] LABS: ALT 49 U/L (10-49); AST 44 U/L (14-35); Albumin 4.6 g/dL (3.8-4.9); Alkaline Phosphatase 84 U/L (41-126); BUN/Creat Ratio 12.36 Ratio (12.00-20.00); Blood Urea Nitrogen 13.6 mg/dL (9.0-27.0); Calcium 9.8 mg/dL (8.7-10.3); Carbon Dioxide 25.7 mmol/L (21.6-31.8); Chloride 105 mmol/L (96-109); Chol/HDL Ratio 3.02 Ratio; Globulin 2.3 g/dL (1.6-3.3); Glucose 119 mg/dL (70-110); LDL Cholesterol,Calculated 67.4 mg/dL (0.0-131.0); Magnesium 2.1 mg/dL (1.5-2.4); Potassium 4.3 mmol/L (3.5-5.5); Sodium 141 mmol/L (135-145); Total Bilirubin 0.8 mg/dL (0.3-1.2); Total Protein 6.9 g/dL (6.2-8.2)
== END | disposition home or self-care (01) ==
LOC: LABWHC1 08:16
PROVIDERS: ATTEND Internal Medicine Clinical Cardiac Electrophysiology
DX: I48.91 Unspecified atrial fibrillation (principal); Z79.899 Other long term (current) drug therapy
CPT/HCPCS: 36415; 80053; 80061; 83735; 84443

== ENCOUNTER → 2024-11-09 | Outpatient (CLI) | payer MEDICARE ==
[2024-11-09 15:23] LABS: Calcium 9.4 mg/dL (8.7-10.3); Carbon Dioxide 24.1 mmol/L (21.6-31.8); Chloride 102 mmol/L (96-109); Glucose 106 mg/dL (70-110); Magnesium 1.9 mg/dL (1.5-2.4); Potassium 4.2 mmol/L (3.5-5.5); Sodium 137 mmol/L (135-145)
== END | disposition home or self-care (01) ==
LOC: LABWHC1 11:13
PROVIDERS: ATTEND Internal Medicine Clinical Cardiac Electrophysiology
DX: I10 Essential (primary) hypertension (principal)
CPT/HCPCS: 36415; 80048; 83735